=== PATIENT | male | born 1965 | race Caucasian/White ===

== ENCOUNTER 2019-09-26 09:16 | Inpatient (IN) | payer BC, OTHER ==
[~2019-09-26] VITALS: Ht 137.2 cm; Wt 70.8 kg
[~2019-09-26 09:16] MED LIST: ASPI-496 PO; ATOR20TA37 PO; LISI-167 PO; LISI5TAB7 PO; NICO1PAT31 TD; RANI150T4 PO; TAMS0.4C2 PO
--- NOTE | 2019-09-26 09:55 | NUR ---
BREAK RN: PT REPORT RECEIVED FROM ADAM FIGUEROA. PT CARE TO BE ASSUMED. PT RESTING QUIETLY ON BED WATCHING TV, EVEN CHEST RISE AND FALL NOTED.
[2019-09-26] MEDS ORDERED: methylPREDNISolone SOD SUCC 125 MG/2 ML IV ONE (10:00)
[2019-09-26] MEDS ORDERED: SODIUM CHLORIDE FLUSH 10ML SYR IVF ONE (10:00)
[2019-09-26] MEDS ORDERED: ALBUTEROL/IPRATROPIUM 2.5MG/0.5MG, 3 ML NPPB ONE (10:00)
[2019-09-26] MEDS ORDERED: ALBUTEROL/IPRATROPIUM 2.5MG/0.5MG, 3 ML ONE (10:04)
--- NOTE | 2019-09-26 10:08 | NUR ---
RT AT BS
[2019-09-26] MEDS ORDERED: methylPREDNISolone SOD SUCC 125 MG/2 ML ONE (10:30)
--- NOTE | 2019-09-26 10:49 | NUR ---
IV ATTEMPTED; UNSUCCESSFUL; WILL SEEK ASSISTANCE.
[2019-09-26] MEDS ORDERED: EPLE50TA3 PO (11:30)
[2019-09-26] MEDS ORDERED: VITAMIN D (11:30)
[2019-09-26] MEDS ORDERED: TADA20TA54 PO (11:30)
[2019-09-26] MEDS ORDERED: AMBR5TAB5 PO (11:30)
[2019-09-26] MEDS ORDERED: CIME400T PO (11:30)
[2019-09-26 11:41] LABS: BASOPHILS # (AUTO) 0.04 x10^3/uL (0-0.1); BASOPHILS % (AUTO) 0 % (0-1); EOSINOPHILS # (AUTO) 0.09 x10^3/uL (0-0.4); EOSINOPHILS % (AUTO) 1 % (1-7); LYMPHOCYTES # (AUTO) 0.89 x10^3/uL (1-3.4); LYMPHOCYTES % (AUTO) 10 % (22-44); MD NO; MEAN CORPUSCULAR HEMOGLOBIN 32.2 pg (27.5-34.5); MEAN CORPUSCULAR HGB CONC 33.1 g/dL (33.2-36.2); MEAN CORPUSCULAR VOLUME 97.3 fL (81-97); MEAN PLATELET VOLUME 10.3 fL (7.4-10.4); MONOCYTES # (AUTO) 0.41 x10^3/uL (0.2-0.8); MONOCYTES % (AUTO) 5 % (2-9); NEUTROPHILS # (AUTO) 7.37 x10^3/uL (1.8-6.8); NEUTROPHILS % (AUTO) 84 % (42-75); PLATELET COUNT 209 x10^3/uL (130-400); RED BLOOD COUNT 4.64 x10^6/uL (4.38-5.82); RED CELL DISTRIBUTION WIDTH 13.6 % (9.4-14.8)
--- NOTE | 2019-09-26 11:47 | NUR ---
PT REPORT TO ADAM FIGUEROA. PT CARE TRANSFERRED.
--- NOTE | 2019-09-26 11:47 | NUR ---
PT RESTING ON GURNEY, MOTHER AT BEDSIDE, VSS, NAD NOTED AT THIS TIME
[2019-09-26 11:56] LABS: ALBUMIN 3.6 g/dL (3.4-5.0); ANION GAP 7 mmol/L (5-15); CALCIUM 8.7 mg/dL (8.5-10.1); CHLORIDE 106 mmol/L (98-107)
[2019-09-26 12:04] LABS: ALANINE AMINOTRANSFERASE 28 U/L (12-78); ALKALINE PHOSPHATASE 66 U/L (45-117); BILIRUBIN,TOTAL 0.4 mg/dL (0.2-1.0); CREATININE 1.16 mg/dL (0.7-1.3); TOTAL PROTEIN 7.2 g/dL (6.4-8.2); TROPONIN I < 0.015 ng/mL (0.000-0.045)
--- NOTE | 2019-09-26 12:26 | NUR ---
ERMD IN TO UPDATE PT ON POC, ANTICIPATE ADMISSION. NO NEEDS AT THIS TIME.
[2019-09-26] MEDS ORDERED: SODIUM CHLORIDE FLUSH 10ML SYR IVF PRN (13:00)
--- NOTE | 2019-09-26 13:26 | NUR ---
REPORT GIVEN TO SHEILA CENTENO
[2019-09-26 13:46] VITALS: BP 125/63
[2019-09-26] MEDS ORDERED: ENOXAPARIN 40 MG/0.4 ML SQ SCH (14:00)
[2019-09-26 14:56] LABS: RAPID INFLUENZA A Negative (Negative); RAPID INFLUENZA B Negative (Negative)
[2019-09-26] MEDS ORDERED: SPIR25TA5 PO (15:15)
[2019-09-26] MEDS ORDERED: CHOL100011 PO (15:18)
[2019-09-26 16:08] VITALS: BP 106/57
[2019-09-26 18:45] VITALS: BP 112/56
[2019-09-26 18:55] LABS: TROPONIN I < 0.015 ng/mL (0.000-0.045)
[2019-09-26] MEDS: methylPREDNISolone SOD SUCC 125 MG/2 ML IVPush SCH (19:00)
[2019-09-26] MEDS: ALBUTEROL/IPRATROPIUM 2.5MG/0.5MG, 3 ML NPPB PRN (19:04)
[2019-09-26 20:13] VITALS: BP 117/52
[2019-09-26] MEDS ORDERED: MAGNESIUM HYDROXIDE 8%, 30ML UDC ONE (20:29)
[2019-09-26] MEDS ORDERED: MAGNESIUM HYDROXIDE 8%, 30ML UDC PO PRN (20:30)
[2019-09-26] MEDS ORDERED: ACETAMINOPHEN 325 MG TABLET PO PRN (20:30)
[2019-09-26] MEDS: TAMSULOSIN 0.4 MG CAP.ER.24H PO SCH (20:36)
[2019-09-26] MEDS: DOCUSATE 100 MG CAPSULE PO SCH (20:37)
[2019-09-26] MEDS ORDERED: CIMETIDINE 400 MG TABLET PO SCH (21:00)
[2019-09-26] MEDS ORDERED: ATORVASTATIN 20 MG TABLET PO SCH (21:00)
[2019-09-27 01:30] VITALS: BP 90/65
[2019-09-27 01:38] LABS: TROPONIN I < 0.015 ng/mL (0.000-0.045)
[2019-09-27] MEDS: ALBUTEROL/IPRATROPIUM 2.5MG/0.5MG, 3 ML NPPB PRN (02:17)
[2019-09-27] MEDS: methylPREDNISolone SOD SUCC 125 MG/2 ML IVPush SCH ×3 (02:56→09:15)
[2019-09-27 05:00] LABS: BASOPHILS % (AUTO) 0 % (0-1); EOSINOPHILS % (AUTO) 0 % (1-7); LYMPHOCYTES # (AUTO) 0.43 x10^3/uL (1-3.4); LYMPHOCYTES % (AUTO) 4 % (22-44); MD NO; MEAN CORPUSCULAR HEMOGLOBIN 32.8 pg (27.5-34.5); MEAN CORPUSCULAR VOLUME 96.5 fL (81-97); MEAN PLATELET VOLUME 9.6 fL (7.4-10.4); MONOCYTES # (AUTO) 0.26 x10^3/uL (0.2-0.8); MONOCYTES % (AUTO) 2 % (2-9); NEUTROPHILS # (AUTO) 10.67 x10^3/uL (1.8-6.8); NEUTROPHILS % (AUTO) 94 % (42-75); PLATELET COUNT 185 x10^3/uL (130-400); RED BLOOD COUNT 4.25 x10^6/uL (4.38-5.82); RED CELL DISTRIBUTION WIDTH 13.4 % (9.4-14.8)
[2019-09-27 05:04] LABS: ALBUMIN 3.4 g/dL (3.4-5.0); ANION GAP 8 mmol/L (5-15); CALCIUM 8.5 mg/dL (8.5-10.1); CHLORIDE 106 mmol/L (98-107)
[2019-09-27 05:15] LABS: ALANINE AMINOTRANSFERASE 31 U/L (12-78); ALKALINE PHOSPHATASE 61 U/L (45-117); BILIRUBIN,TOTAL 0.3 mg/dL (0.2-1.0); CREATININE 1.51 mg/dL (0.7-1.3); TOTAL PROTEIN 6.9 g/dL (6.4-8.2)
[2019-09-27] MEDS ORDERED: SODIUM CHLORIDE 0.9% 1,000 ML IV SCH (08:30)
[2019-09-27] MEDS ORDERED: CEFTRIAXONE PMX 2GM/50ML 50 ML IV SCH (08:30)
[2019-09-27 08:59] VITALS: BP 111/69
[2019-09-27] MEDS ORDERED: DOXYCYCLINE 100MG TABLET PO SCH (09:00)
[2019-09-27] MEDS ORDERED: ASPIRIN 81 MG TABLET EC PO SCH (09:00)
[2019-09-27] MEDS ORDERED: CIMETIDINE 200 MG TABLET PO SCH (09:00)
[2019-09-27] MEDS ORDERED: TADALAFIL 20 MG PO SCH (09:00)
[2019-09-27] MEDS ORDERED: LISINOPRIL 10 MG TABLET PO SCH (09:00)
[2019-09-27] MEDS ORDERED: LISINOPRIL 5 MG TABLET PO SCH (09:00)
[2019-09-27] MEDS ORDERED: AMBRISENTAN 5 MG PO SCH (09:00)
[2019-09-27] MEDS ORDERED: EPLERENONE 50 MG TABLET PO SCH (09:00)
[2019-09-27] MEDS: TAMSULOSIN 0.4 MG CAP.ER.24H PO SCH (09:11)
[2019-09-27] MEDS: DOCUSATE 100 MG CAPSULE PO SCH (09:11)
[2019-09-27 12:38] VITALS: BP 130/75
== END 2019-09-27 14:00 | disposition left against medical advice (07) | DRG 189 ==
LOC: ED 11:26 → EDIP 13:07 → 4WST 13:41
PROVIDERS: ADMIT Internal Medicine; ATTEND Internal Medicine
DX: J96.01 Acute respiratory failure with hypoxia (principal); N17.0 Acute kidney failure with tubular necrosis; I27.0 Primary pulmonary hypertension; Z99.11 Dependence on respirator [ventilator] status; E78.5 Hyperlipidemia, unspecified; G47.33 Obstructive sleep apnea (adult) (pediatric); J44.9 Chronic obstructive pulmonary disease, unspecified; Z86.74 Personal history of sudden cardiac arrest; Z87.891 Personal history of nicotine dependence; Z53.29 Procedure and treatment not carried out because of patient's decision for other reasons; Z91.040 Latex allergy status; Z88.8 Allergy status to other drugs, medicaments and biological substances; Z91.018 Allergy to other foods; E87.70 Fluid overload, unspecified
CPT/HCPCS: 36415; 87400; 96374; 99285; J7620; 71045; 80053; 83880; 84443; 84484; 85025; 85379; 93005; 93306; 93356; 94640; G0378; J0696; J1650; J2930; J7030

== ENCOUNTER 2019-09-28 03:47 | Inpatient (IN) | payer MEDICAID ==
[~2019-09-28] VITALS: Ht 137.2 cm; Wt 72.6 kg
[~2019-09-28 03:47] MED LIST changes: +AMBR5TAB5 PO; +CHOL100011 PO; +CIME400T PO; +EPLE50TA3 PO; +ETOMIDATE 40 MG/20 ML ONE; +PROPOFOL 10 MG/ML, 100ML IV ONE; +SPIR25TA5 PO; +TADA20TA54 PO; +VECURONIUM 10 MG ONE; +VITAMIN D
[2019-09-28] MEDS ORDERED: methylPREDNISolone SOD SUCC 125 MG/2 ML ONE (04:16)
--- NOTE | 2019-09-28 04:17 | NUR ---
PT MEDICATED PER EMAR. 5 RIGHTS ADDRESSED. ABX HELD UNTIL BLOOD CULTURES ARE DRAWN
--- NOTE | 2019-09-28 04:22 | NUR ---
RT AT BEDSIDE
[2019-09-28] MEDS ORDERED: methylPREDNISolone SOD SUCC 125 MG/2 ML IV ONE (04:30)
[2019-09-28] MEDS ORDERED: AZITHROMYCIN 500 MG in SODIUM CHLORIDE 0.9% 250 ML IVPB ONE (04:30)
--- NOTE | 2019-09-28 04:30 | NUR ---
LATE ENTRY: 53 Y/O MALE PRESENTS TO THE ER C/O SOB THAT STARTED SUDDENLY. PT WAS JUST HOSPITALIZED HERE AND LEFT AMA YESTERDAY. LABORED BREATHING PRESENT UPON ARRIVAL. SKIN IS RED, WARM TO TOUCH. RR 38, RA SATS IN TRIAGE IN 80s. PT DENIES NEEDING HOME O2. LUNG SOUNDS REVEAL WHEEZES THROUGHOUT WITH DIMINISHED SOUNDS ON THE LEFT. PULSES PRESENT, REGULAR, RAPID. SINUS TACH ON THE MONITOR WITH NO ECTOPY OR ST CHANGES PRESENT. PT ON NC AT 6LPM. O2 SAT INCREASED TO 99%.BREATHING REMAINS LABORED. DR. BERNAL AT BEDSIDE UPON ARRIVAL TO THE ROOM. EKG COMPLETE. MOTHER AT BEDSIDE.
[2019-09-28] MEDS ORDERED: ALBUTEROL/IPRATROPIUM 2.5MG/0.5MG, 3 ML ONE (04:36)
--- NOTE | 2019-09-28 04:52 | NUR ---
PT REPORTS SLIGHT RELIEF AFTER BREATHING TREATMENTS. RR IS STILL ABOUT THE SAME. PT PLACED ON ETCO2 MONITORING. ETCO2 35. PT REFUSING TO STAY IN BED, STATING "MY BACK HURTS, I CAN'T SIT THERE ANYMORE". PT ENCOURAGED TO SIT IN A CHAIR AT THE BEDSIDE BUT IS REFUSING AT THIS TIME. MOTHER REMAINS AT BEDSIDE. FRENCH LECTURER CARLOS LABS AND ONE SET OF BLOOD CULTURES, STILL AWAITING SECOND BLOOD CULTURE FOR ABX. DR. GABE TANG.
[2019-09-28 05:04] LABS: BASOPHILS # (AUTO) 0.03 x10^3/uL (0-0.1); BASOPHILS % (AUTO) 0 % (0-1); EOSINOPHILS % (AUTO) 0 % (1-7); LYMPHOCYTES # (AUTO) 1.48 x10^3/uL (1-3.4); LYMPHOCYTES % (AUTO) 11 % (22-44); MD NO; MEAN CORPUSCULAR HEMOGLOBIN 32.9 pg (27.5-34.5); MEAN CORPUSCULAR HGB CONC 33.8 g/dL (33.2-36.2); MEAN CORPUSCULAR VOLUME 97.3 fL (81-97); MEAN PLATELET VOLUME 9.4 fL (7.4-10.4); MONOCYTES # (AUTO) 0.26 x10^3/uL (0.2-0.8); MONOCYTES % (AUTO) 2 % (2-9); NEUTROPHILS # (AUTO) 11.22 x10^3/uL (1.8-6.8); NEUTROPHILS % (AUTO) 86 % (42-75); PLATELET COUNT 183 x10^3/uL (130-400); RED BLOOD COUNT 4.39 x10^6/uL (4.38-5.82)
[2019-09-28] MEDS: ALBUTEROL/IPRATROPIUM 2.5MG/0.5MG, 3 ML NPPB SCH ×2 (05:04→07:24)
--- NOTE | 2019-09-28 05:09 | NUR ---
DR. BERNAL AT BEDSIDE RE EVALUATING PT
[2019-09-28] MEDS ORDERED: CEFTRIAXONE PMX 1GM/50ML 50 ML ONE (05:11)
[2019-09-28] MEDS ORDERED: ACETAMINOPHEN 500 MG TABLET ONE (05:11)
[2019-09-28 05:16] LABS: ALBUMIN 3.4 g/dL (3.4-5.0); ANION GAP 6 mmol/L (5-15); CALCIUM 8.7 mg/dL (8.5-10.1); CHLORIDE 104 mmol/L (98-107); CREATININE 1.19 mg/dL (0.7-1.3)
[2019-09-28 05:20] LABS: TROPONIN I 0.017 ng/mL (0.000-0.045)
[2019-09-28] MEDS ORDERED: ACETAMINOPHEN 500 MG TABLET PO ONE (05:30)
[2019-09-28] MEDS ORDERED: CEFTRIAXONE PMX 1GM/50ML 50 ML IV ONE (05:30)
--- NOTE | 2019-09-28 05:45 | NUR ---
RESPIRATORY EFFORT HAS DECREASED, PT BREATHING WITH EASE AT THIS TIME. SLEEPING. AROUSES TO VERBAL STIMULI. RR 26. SATS 95% ON O2. NO IV FLUIDS PER ERP. ABX INFUSING, WILL CONTINUE TO MONITOR.
[2019-09-28 05:49] LABS: RAPID INFLUENZA A Negative (Negative); RAPID INFLUENZA B Negative (Negative)
--- NOTE | 2019-09-28 06:05 | NUR ---
PT OUT OF BED WITHOUT CALLING NURSE. PULLING EKG LEADS OFF STATING "HOW MUCH LONGER". PT EDUCATED ON THE NEED TO STAY IN BED AND NOT GET UP WITHOUT PRESSING HIS CALL LIGHT FOR HIS SAFETY. PT VERBALIZES UNDERSTANDING. PT PLACED BACK IN BED, LYING ON HIS SIDE. THIS RN ATTEMPTED TO REPOSITION THE PT AND THE PT RESPONDED "LEAVE ME HERE, I'M FINE HERE". ALL VITALS STABLE. AWAITING ROOM FOR PATIENT ON MED TELE. PT UPDATED ON POC. VERBALIZES UNDERSTANDING.
--- NOTE | 2019-09-28 06:18 | NUR ---
REPORT TO ADAM PALMER
[2019-09-28 06:30] VITALS: BP 93/57
[2019-09-28] MEDS ORDERED: PHARMACOKINETIC CONSULTATION MC ONE (08:30)
[2019-09-28] MEDS ORDERED: PHARMACOKINETIC MONITORING MC PRN (08:30)
[2019-09-28] MEDS ORDERED: VANCOMYCIN PER PHARMACY MC PRN (08:30)
[2019-09-28] MEDS ORDERED: FUROSEMIDE 40 MG/4 ML IV ONE (08:30)
[2019-09-28] MEDS: PIPERACILLIN/TAZO/PMX 3.375GM 50 ML IV SCH ×3 (09:32→21:37)
[2019-09-28] MEDS ORDERED: FENTANYL PF 100 MCG/2ML ONE (10:49)
[2019-09-28] MEDS ORDERED: BISACODYL 10 MG SUPP PR PRN (11:00)
[2019-09-28] MEDS: ALBUTEROL/IPRATROPIUM 2.5MG/0.5MG, 3 ML INLINE SCH ×4 (11:00→22:10)
[2019-09-28] MEDS ORDERED: SENNA/DOCUSATE TABLET NG PRN (11:00)
[2019-09-28] MEDS ORDERED: DEXTROSE 50%, 50ML SYRINGE IVPush PRN (11:00)
[2019-09-28] MEDS ORDERED: PHARMACY MAY ADJ FOR RENAL FX MC SCH (11:00)
[2019-09-28] MEDS ORDERED: SENNA 176 MG/5 ML ORAL SOL NG PRN (11:00)
[2019-09-28] MEDS ORDERED: DEXTROSE 4 GM TAB.CHEW PO PRN (11:00)
[2019-09-28] MEDS ORDERED: LIDOCAINE-MPF 1%, 2ML ENDO PRN (11:00)
[2019-09-28] MEDS ORDERED: GLUCAGON 1 MG IM PRN (11:00)
[2019-09-28] MEDS ORDERED: LACTULOSE 20 GM/30 ML UDC NG PRN (11:00)
[2019-09-28] MEDS: FENTANYL PF 100 MCG/2ML IVPush PRN (11:15)
[2019-09-28 12:21] LABS: BASOPHILS # (AUTO) 0.01 x10^3/uL (0-0.1); BASOPHILS % (AUTO) 0 % (0-1); EOSINOPHILS % (AUTO) 0 % (1-7); LYMPHOCYTES # (AUTO) 0.44 x10^3/uL (1-3.4); LYMPHOCYTES % (AUTO) 4 % (22-44); MD NO; MEAN CORPUSCULAR HEMOGLOBIN 32.3 pg (27.5-34.5); MEAN CORPUSCULAR HGB CONC 32.9 g/dL (33.2-36.2); MEAN CORPUSCULAR VOLUME 98.2 fL (81-97); MEAN PLATELET VOLUME 9.5 fL (7.4-10.4); MONOCYTES # (AUTO) 0.22 x10^3/uL (0.2-0.8); MONOCYTES % (AUTO) 2 % (2-9); NEUTROPHILS # (AUTO) 11.02 x10^3/uL (1.8-6.8); NEUTROPHILS % (AUTO) 94 % (42-75); PLATELET COUNT 191 x10^3/uL (130-400); RED BLOOD COUNT 4.46 x10^6/uL (4.38-5.82); RED CELL DISTRIBUTION WIDTH 14.2 % (9.4-14.8)
[2019-09-28 12:31] LABS: ANION GAP 9 mmol/L (5-15); CALCIUM 7.7 mg/dL (8.5-10.1); CHLORIDE 103 mmol/L (98-107); CREATININE 1.51 mg/dL (0.7-1.3); TRIGLYCERIDES 104 mg/dL (50-200)
[2019-09-28 12:34] LABS: TROPONIN I < 0.015 ng/mL (0.000-0.045)
[2019-09-28] MEDS: PROPOFOL 100 ML IV PRN ×2 (14:37→18:23)
[2019-09-28] MEDS: SODIUM CHLORIDE FLUSH 10ML SYR IVF SCH ×2 (14:42→20:09)
[2019-09-28] MEDS: PANTOPRAZOLE 40 MG IV IV SCH (14:45)
[2019-09-28 16:28] LABS: AMPHETAMINE SCREEN, URINE Negative (Negative); BARBITURATE SCREEN, URINE Negative (Negative); BENZODIAZEPINE SCREEN, URINE Negative (Negative); CANNABINOID SCREEN, URINE Negative (Negative); COCAINE SCREEN, URINE Negative (Negative); METHADONE SCREEN, URINE Negative (Negative); OPIATE SCREEN, URINE Negative (Negative)
[2019-09-28 17:23] LABS: TROPONIN I < 0.015 ng/mL (0.000-0.045)
[2019-09-28] MEDS: VANCOMYCIN 1,400 MG in SODIUM CHLORIDE 0.9% 250 ML IV SCH (17:38)
[2019-09-28] MEDS: HEPARIN 5,000 UNITS/ML, 1ML SQ SCH (20:10)
[2019-09-29] MEDS: PROPOFOL 100 ML IV PRN ×6 (00:32→23:10)
[2019-09-29] MEDS: ALBUTEROL/IPRATROPIUM 2.5MG/0.5MG, 3 ML INLINE SCH ×6 (02:15→22:15)
[2019-09-29] MEDS: HEPARIN 5,000 UNITS/ML, 1ML SQ SCH ×3 (03:45→21:30)
[2019-09-29] MEDS: PIPERACILLIN/TAZO/PMX 3.375GM 50 ML IV SCH ×4 (03:46→23:10)
[2019-09-29 04:17] LABS: BASOPHILS % (AUTO) 0 % (0-1); EOSINOPHILS % (AUTO) 0 % (1-7); LYMPHOCYTES % (AUTO) 6 % (22-44); MD NO; MEAN CORPUSCULAR HEMOGLOBIN 31.9 pg (27.5-34.5); MEAN CORPUSCULAR HGB CONC 32.6 g/dL (33.2-36.2); MEAN PLATELET VOLUME 9.5 fL (7.4-10.4); MONOCYTES # (AUTO) 0.59 x10^3/uL (0.2-0.8); MONOCYTES % (AUTO) 5 % (2-9); NEUTROPHILS # (AUTO) 9.95 x10^3/uL (1.8-6.8); NEUTROPHILS % (AUTO) 89 % (42-75); PLATELET COUNT 203 x10^3/uL (130-400); RED BLOOD COUNT 4.29 x10^6/uL (4.38-5.82)
[2019-09-29 04:20] LABS: ALANINE AMINOTRANSFERASE 43 U/L (12-78); ALBUMIN 2.9 g/dL (3.4-5.0); ANION GAP 6 mmol/L (5-15); CALCIUM 8.2 mg/dL (8.5-10.1); CHLORIDE 104 mmol/L (98-107); CREATININE 1.34 mg/dL (0.7-1.3)
[2019-09-29 04:23] LABS: ALKALINE PHOSPHATASE 52 U/L (45-117); BILIRUBIN,TOTAL 0.4 mg/dL (0.2-1.0); TOTAL PROTEIN 6.6 g/dL (6.4-8.2)
[2019-09-29 05:01] VITALS: BP 124/65
[2019-09-29] MEDS: SODIUM CHLORIDE FLUSH 10ML SYR IVF SCH ×2 (08:45→21:31)
[2019-09-29] MEDS: PANTOPRAZOLE 40 MG IV IV SCH (08:45)
--- NOTE | 2019-09-29 11:16 | NUR ---
TF goal recs: Promote @ 60 ml/hour on propofol and 65 ml/hour off propofol
[2019-09-29] MEDS: VANCOMYCIN 1,400 MG in SODIUM CHLORIDE 0.9% 250 ML IV SCH (11:33)
[2019-09-29] MEDS: BUDESONIDE 0.5 MG/2 ML INHA INH SCH (18:20)
[2019-09-29] MEDS: ACETAMINOPHEN 650 MG/20.3 ML UDC NG PRN (21:31)
[2019-09-29] MEDS: FENTANYL PF 100 MCG/2ML IVPush PRN ×2 (22:01→23:57)
[2019-09-30] MEDS: ACETAMINOPHEN 650 MG/20.3 ML UDC NG PRN ×2 (01:57→07:54)
[2019-09-30] MEDS ORDERED: MIDAZOLAM 1 MG/ML, 2ML IVPush ONE (02:00)
[2019-09-30] MEDS: ALBUTEROL/IPRATROPIUM 2.5MG/0.5MG, 3 ML INLINE SCH ×6 (02:15→22:30)
[2019-09-30] MEDS: PROPOFOL 100 ML IV PRN ×5 (03:02→22:03)
[2019-09-30] MEDS: HEPARIN 5,000 UNITS/ML, 1ML SQ SCH ×3 (03:03→19:45)
[2019-09-30] MEDS: FENTANYL PF 100 MCG/2ML IVPush PRN ×2 (03:10→13:46)
[2019-09-30 04:39] LABS: BASOPHILS # (AUTO) 0.01 x10^3/uL (0-0.1); BASOPHILS % (AUTO) 0 % (0-1); EOSINOPHILS # (AUTO) 0.01 x10^3/uL (0-0.4); EOSINOPHILS % (AUTO) 0 % (1-7); LYMPHOCYTES # (AUTO) 0.94 x10^3/uL (1-3.4); LYMPHOCYTES % (AUTO) 14 % (22-44); MD NO; MEAN CORPUSCULAR HEMOGLOBIN 32.4 pg (27.5-34.5); MEAN CORPUSCULAR HGB CONC 33.4 g/dL (33.2-36.2); MEAN CORPUSCULAR VOLUME 96.9 fL (81-97); MEAN PLATELET VOLUME 9.5 fL (7.4-10.4); MONOCYTES # (AUTO) 0.13 x10^3/uL (0.2-0.8); MONOCYTES % (AUTO) 2 % (2-9); NEUTROPHILS # (AUTO) 5.75 x10^3/uL (1.8-6.8); NEUTROPHILS % (AUTO) 84 % (42-75); PLATELET COUNT 176 x10^3/uL (130-400); RED BLOOD COUNT 4.31 x10^6/uL (4.38-5.82); RED CELL DISTRIBUTION WIDTH 14.1 % (9.4-14.8)
[2019-09-30 04:51] LABS: ANION GAP 5 mmol/L (5-15); CALCIUM 8.1 mg/dL (8.5-10.1); CHLORIDE 105 mmol/L (98-107); CREATININE 1.32 mg/dL (0.7-1.3)
[2019-09-30] MEDS: PIPERACILLIN/TAZO/PMX 3.375GM 50 ML IV SCH ×4 (04:52→22:28)
[2019-09-30] MEDS: BUDESONIDE 0.5 MG/2 ML INHA INH SCH ×2 (06:40→18:15)
[2019-09-30] MEDS: PANTOPRAZOLE 40 MG IV IV SCH (09:29)
[2019-09-30] MEDS: SODIUM CHLORIDE FLUSH 10ML SYR IVF SCH ×2 (09:29→21:01)
[2019-09-30] MEDS: QUETIAPINE 25MG TABLET PO SCH ×2 (09:30→21:00)
[2019-09-30] MEDS ORDERED: FUROSEMIDE 20 MG/2 ML IV ONE (14:30)
[2019-10-01] MEDS: PROPOFOL 100 ML IV PRN ×5 (00:48→20:42)
[2019-10-01] MEDS: FENTANYL PF 100 MCG/2ML IVPush PRN (00:49)
[2019-10-01] MEDS: ALBUTEROL/IPRATROPIUM 2.5MG/0.5MG, 3 ML INLINE SCH ×6 (02:00→22:23)
[2019-10-01] MEDS: PIPERACILLIN/TAZO/PMX 3.375GM 50 ML IV SCH (03:53)
[2019-10-01] MEDS: HEPARIN 5,000 UNITS/ML, 1ML SQ SCH ×3 (03:53→19:46)
[2019-10-01 04:14] LABS: BASOPHILS # (AUTO) 0.01 x10^3/uL (0-0.1); BASOPHILS % (AUTO) 0 % (0-1); EOSINOPHILS # (AUTO) 0.02 x10^3/uL (0-0.4); EOSINOPHILS % (AUTO) 0 % (1-7); LYMPHOCYTES # (AUTO) 0.61 x10^3/uL (1-3.4); LYMPHOCYTES % (AUTO) 10 % (22-44); MD NO; MEAN CORPUSCULAR HEMOGLOBIN 32.3 pg (27.5-34.5); MEAN CORPUSCULAR HGB CONC 33.2 g/dL (33.2-36.2); MEAN CORPUSCULAR VOLUME 97.3 fL (81-97); MEAN PLATELET VOLUME 9.2 fL (7.4-10.4); MONOCYTES # (AUTO) 0.12 x10^3/uL (0.2-0.8); MONOCYTES % (AUTO) 2 % (2-9); NEUTROPHILS # (AUTO) 5.24 x10^3/uL (1.8-6.8); NEUTROPHILS % (AUTO) 87 % (42-75); PLATELET COUNT 178 x10^3/uL (130-400); RED BLOOD COUNT 4.34 x10^6/uL (4.38-5.82); RED CELL DISTRIBUTION WIDTH 14.1 % (9.4-14.8)
[2019-10-01] MEDS: BUDESONIDE 0.5 MG/2 ML INHA INH SCH ×2 (06:51→18:35)
[2019-10-01] MEDS ORDERED: POTASSIUM CHLORIDE 10% 40 MEQ/30 ML UDC PO ONE (07:00)
[2019-10-01] MEDS: AMPICILLIN/SULBACTAM 3 GM in SODIUM CHLORIDE 0.9% 100 ML IV SCH ×3 (08:19→19:46)
[2019-10-01] MEDS: FUROSEMIDE 20 MG/2 ML IV SCH ×2 (08:20→17:35)
[2019-10-01] MEDS: PANTOPRAZOLE 40 MG IV IV SCH (10:34)
[2019-10-01] MEDS: QUETIAPINE 25MG TABLET PO SCH ×2 (10:35→20:51)
[2019-10-01] MEDS: SODIUM CHLORIDE FLUSH 10ML SYR IVF SCH ×2 (10:35→20:51)
[2019-10-01 15:44] LABS: ANION GAP 11 mmol/L (5-15); CALCIUM 8.2 mg/dL (8.5-10.1); CHLORIDE 103 mmol/L (98-107); CREATININE 1.21 mg/dL (0.7-1.3)
[2019-10-02] MEDS: PROPOFOL 100 ML IV PRN ×5 (00:10→23:06)
[2019-10-02] MEDS: AMPICILLIN/SULBACTAM 3 GM in SODIUM CHLORIDE 0.9% 100 ML IV SCH ×4 (00:52→19:46)
[2019-10-02] MEDS: ALBUTEROL/IPRATROPIUM 2.5MG/0.5MG, 3 ML INLINE SCH ×6 (02:05→22:22)
[2019-10-02] MEDS: HEPARIN 5,000 UNITS/ML, 1ML SQ SCH ×3 (04:22→19:46)
[2019-10-02 04:31] LABS: BASOPHILS % (AUTO) 0 % (0-1); EOSINOPHILS # (AUTO) 0.02 x10^3/uL (0-0.4); EOSINOPHILS % (AUTO) 0 % (1-7); LYMPHOCYTES # (AUTO) 0.79 x10^3/uL (1-3.4); LYMPHOCYTES % (AUTO) 12 % (22-44); MD NO; MEAN CORPUSCULAR HGB CONC 33.5 g/dL (33.2-36.2); MEAN CORPUSCULAR VOLUME 95.7 fL (81-97); MEAN PLATELET VOLUME 9.6 fL (7.4-10.4); MONOCYTES # (AUTO) 0.34 x10^3/uL (0.2-0.8); MONOCYTES % (AUTO) 5 % (2-9); NEUTROPHILS # (AUTO) 5.37 x10^3/uL (1.8-6.8); NEUTROPHILS % (AUTO) 82 % (42-75); PLATELET COUNT 183 x10^3/uL (130-400); RED BLOOD COUNT 4.41 x10^6/uL (4.38-5.82); RED CELL DISTRIBUTION WIDTH 13.5 % (9.4-14.8)
[2019-10-02] MEDS: ACETAMINOPHEN 650 MG/20.3 ML UDC NG PRN (06:06)
[2019-10-02] MEDS: BUDESONIDE 0.5 MG/2 ML INHA INH SCH ×2 (06:49→22:21)
[2019-10-02] MEDS: FUROSEMIDE 20 MG/2 ML IV SCH ×3 (07:20→23:21)
[2019-10-02] MEDS: FENTANYL PF 100 MCG/2ML IVPush PRN ×2 (07:21→23:05)
[2019-10-02 09:10] LABS: ANION GAP 10 mmol/L (5-15); CALCIUM 8.3 mg/dL (8.5-10.1); CHLORIDE 104 mmol/L (98-107); CREATININE 1.28 mg/dL (0.7-1.3)
[2019-10-02] MEDS: PANTOPRAZOLE 40 MG IV IV SCH (11:00)
[2019-10-02] MEDS: QUETIAPINE 25MG TABLET PO SCH ×2 (11:00→21:33)
[2019-10-02] MEDS: SODIUM CHLORIDE FLUSH 10ML SYR IVF SCH ×2 (11:00→21:34)
[2019-10-03] MEDS: AMPICILLIN/SULBACTAM 3 GM in SODIUM CHLORIDE 0.9% 100 ML IV SCH ×4 (00:55→18:43)
[2019-10-03] MEDS: ALBUTEROL/IPRATROPIUM 2.5MG/0.5MG, 3 ML INLINE SCH ×6 (02:10→23:00)
[2019-10-03] MEDS: PROPOFOL 100 ML IV PRN ×5 (03:15→23:07)
[2019-10-03] MEDS: HEPARIN 5,000 UNITS/ML, 1ML SQ SCH ×3 (04:09→20:45)
[2019-10-03 04:48] LABS: BASOPHILS # (AUTO) 0.02 x10^3/uL (0-0.1); BASOPHILS % (AUTO) 0 % (0-1); EOSINOPHILS # (AUTO) 0.21 x10^3/uL (0-0.4); EOSINOPHILS % (AUTO) 3 % (1-7); LYMPHOCYTES % (AUTO) 14 % (22-44); MD NO; MEAN CORPUSCULAR HEMOGLOBIN 31.7 pg (27.5-34.5); MEAN CORPUSCULAR HGB CONC 32.9 g/dL (33.2-36.2); MEAN CORPUSCULAR VOLUME 96.4 fL (81-97); MEAN PLATELET VOLUME 10.7 fL (7.4-10.4); MONOCYTES # (AUTO) 0.55 x10^3/uL (0.2-0.8); MONOCYTES % (AUTO) 8 % (2-9); NEUTROPHILS # (AUTO) 5.19 x10^3/uL (1.8-6.8); NEUTROPHILS % (AUTO) 75 % (42-75); PLATELET COUNT 166 x10^3/uL (130-400); RED BLOOD COUNT 4.52 x10^6/uL (4.38-5.82); RED CELL DISTRIBUTION WIDTH 13.8 % (9.4-14.8)
[2019-10-03 04:58] LABS: ALBUMIN 2.1 g/dL (3.4-5.0); ANION GAP 6 mmol/L (5-15); CALCIUM 8.5 mg/dL (8.5-10.1); CHLORIDE 101 mmol/L (98-107)
[2019-10-03 05:02] LABS: ALANINE AMINOTRANSFERASE 36 U/L (12-78); ALKALINE PHOSPHATASE 61 U/L (45-117); BILIRUBIN,TOTAL 0.5 mg/dL (0.2-1.0); CREATININE 1.34 mg/dL (0.7-1.3); TOTAL PROTEIN 6.9 g/dL (6.4-8.2)
[2019-10-03] MEDS: BUDESONIDE 0.5 MG/2 ML INHA INH SCH ×2 (06:21→18:30)
[2019-10-03] MEDS: ACETAMINOPHEN 650 MG/20.3 ML UDC NG PRN ×2 (06:26→23:19)
[2019-10-03] MEDS: FUROSEMIDE 20 MG/2 ML IV SCH (07:43)
[2019-10-03] MEDS ORDERED: SCOPOLAMINE PATCH, 1.5MG PATCH.TD72 TD SCH (09:00)
[2019-10-03] MEDS: QUETIAPINE 25MG TABLET PO SCH ×2 (11:49→20:45)
[2019-10-03] MEDS: SODIUM CHLORIDE FLUSH 10ML SYR IVF SCH ×2 (11:49→20:53)
[2019-10-03] MEDS: PANTOPRAZOLE 40 MG IV IV SCH (11:49)
[2019-10-03] MEDS: AcetaZOLAMIDE INJ 500 MG IVPush SCH ×2 (11:57→20:45)
[2019-10-03] MEDS: SCOPOLAMINE 1MG PATCH TD SCH (15:37)
[2019-10-04] MEDS: AMPICILLIN/SULBACTAM 3 GM in SODIUM CHLORIDE 0.9% 100 ML IV SCH ×4 (00:48→18:08)
[2019-10-04] MEDS: ALBUTEROL/IPRATROPIUM 2.5MG/0.5MG, 3 ML INLINE SCH ×6 (02:50→22:30)
[2019-10-04] MEDS: HEPARIN 5,000 UNITS/ML, 1ML SQ SCH ×3 (04:27→21:00)
[2019-10-04] MEDS: PROPOFOL 100 ML IV PRN ×2 (04:27→09:14)
[2019-10-04] MEDS: BUDESONIDE 0.5 MG/2 ML INHA INH SCH ×2 (06:36→18:15)
[2019-10-04] MEDS ORDERED: DIAZEPAM 5 MG/ML, 10ML VIAL IVPush PRN (09:00)
[2019-10-04] MEDS: SODIUM CHLORIDE FLUSH 10ML SYR IVF SCH ×2 (09:14→21:01)
[2019-10-04] MEDS: PANTOPRAZOLE 40 MG IV IV SCH (09:14)
[2019-10-04] MEDS: QUETIAPINE 25MG TABLET PO SCH ×2 (09:15→21:01)
[2019-10-04] MEDS: AcetaZOLAMIDE INJ 500 MG IVPush SCH ×2 (09:21→21:01)
[2019-10-04] MEDS: methylPREDNISolone SOD SUCC 40 MG/ML IV SCH ×3 (09:21→21:00)
[2019-10-04 09:45] LABS: BASOPHILS # (AUTO) 0.02 x10^3/uL (0-0.1); BASOPHILS % (AUTO) 0 % (0-1); EOSINOPHILS # (AUTO) 0.39 x10^3/uL (0-0.4); EOSINOPHILS % (AUTO) 5 % (1-7); LYMPHOCYTES # (AUTO) 1.16 x10^3/uL (1-3.4); LYMPHOCYTES % (AUTO) 15 % (22-44); MD NO; MEAN CORPUSCULAR HEMOGLOBIN 32.5 pg (27.5-34.5); MEAN CORPUSCULAR HGB CONC 33.8 g/dL (33.2-36.2); MEAN CORPUSCULAR VOLUME 96.1 fL (81-97); MEAN PLATELET VOLUME 9.9 fL (7.4-10.4); MONOCYTES # (AUTO) 0.76 x10^3/uL (0.2-0.8); MONOCYTES % (AUTO) 10 % (2-9); NEUTROPHILS % (AUTO) 70 % (42-75); RED BLOOD COUNT 4.34 x10^6/uL (4.38-5.82)
[2019-10-04 10:17] LABS: PLATELET COUNT 234 x10^3/uL (130-400)
[2019-10-04] MEDS ORDERED: ALBUMIN HUMAN 25% 100 ML IV ONE (11:30)
[2019-10-04] MEDS ORDERED: NOREPINEPHRINE 8 MG in SODIUM CHLORIDE 0.9% 242 ML IV PRN (14:30)
[2019-10-05] MEDS: PROPOFOL 100 ML IV PRN ×6 (00:16→22:42)
[2019-10-05] MEDS: AMPICILLIN/SULBACTAM 3 GM in SODIUM CHLORIDE 0.9% 100 ML IV SCH ×4 (00:28→19:33)
[2019-10-05] MEDS: ALBUTEROL/IPRATROPIUM 2.5MG/0.5MG, 3 ML INLINE SCH ×6 (02:20→22:31)
[2019-10-05] MEDS: methylPREDNISolone SOD SUCC 40 MG/ML IV SCH ×4 (03:48→20:49)
[2019-10-05] MEDS: HEPARIN 5,000 UNITS/ML, 1ML SQ SCH ×3 (03:48→20:49)
[2019-10-05 04:20] LABS: MEAN CORPUSCULAR HEMOGLOBIN 31.5 pg (27.5-34.5); MEAN CORPUSCULAR HGB CONC 32.4 g/dL (33.2-36.2); RED BLOOD COUNT 4.13 x10^6/uL (4.38-5.82); RED CELL DISTRIBUTION WIDTH 13.6 % (9.4-14.8)
[2019-10-05 04:31] LABS: BASOPHILS # (AUTO) 0.01 x10^3/uL (0-0.1); BASOPHILS % (AUTO) 0 % (0-1); EOSINOPHILS # (AUTO) 0.04 x10^3/uL (0-0.4); EOSINOPHILS % (AUTO) 1 % (1-7); LYMPHOCYTES # (AUTO) 0.73 x10^3/uL (1-3.4); LYMPHOCYTES % (AUTO) 11 % (22-44); MD SCAN; MEAN PLATELET VOLUME 10.6 fL (7.4-10.4); MONOCYTES # (AUTO) 0.47 x10^3/uL (0.2-0.8); MONOCYTES % (AUTO) 7 % (2-9); NEUTROPHILS # (AUTO) 5.41 x10^3/uL (1.8-6.8); NEUTROPHILS % (AUTO) 81 % (42-75); PLATELET COUNT 297 x10^3/uL (130-400)
[2019-10-05 04:54] LABS: ALANINE AMINOTRANSFERASE 43 U/L (12-78); ALBUMIN 2.6 g/dL (3.4-5.0); ANION GAP 7 mmol/L (5-15); CALCIUM 8.8 mg/dL (8.5-10.1); CHLORIDE 111 mmol/L (98-107)
[2019-10-05 04:57] LABS: ALKALINE PHOSPHATASE 50 U/L (45-117); BILIRUBIN,TOTAL 0.2 mg/dL (0.2-1.0); TOTAL PROTEIN 7.4 g/dL (6.4-8.2)
[2019-10-05] MEDS: BUDESONIDE 0.5 MG/2 ML INHA INH SCH ×2 (06:44→21:00)
[2019-10-05] MEDS ORDERED: POTASSIUM CHLORIDE 10% 40 MEQ/30 ML UDC PO ONE (07:00)
[2019-10-05] MEDS: PANTOPRAZOLE 40 MG IV IV SCH (09:15)
[2019-10-05] MEDS: QUETIAPINE 25MG TABLET PO SCH ×2 (09:15→20:49)
[2019-10-05] MEDS: SODIUM CHLORIDE FLUSH 10ML SYR IVF SCH ×2 (09:16→20:50)
[2019-10-06] MEDS: AMPICILLIN/SULBACTAM 3 GM in SODIUM CHLORIDE 0.9% 100 ML IV SCH ×4 (00:44→19:22)
[2019-10-06] MEDS: PROPOFOL 100 ML IV PRN (02:24)
[2019-10-06] MEDS: ALBUTEROL/IPRATROPIUM 2.5MG/0.5MG, 3 ML INLINE SCH ×3 (02:35→11:00)
[2019-10-06] MEDS: methylPREDNISolone SOD SUCC 40 MG/ML IV SCH ×2 (03:02→08:26)
[2019-10-06] MEDS: HEPARIN 5,000 UNITS/ML, 1ML SQ SCH ×3 (03:02→19:23)
[2019-10-06 04:35] LABS: BASOPHILS % (AUTO) 0 % (0-1); EOSINOPHILS # (AUTO) 0.17 x10^3/uL (0-0.4); EOSINOPHILS % (AUTO) 2 % (1-7); LYMPHOCYTES # (AUTO) 0.91 x10^3/uL (1-3.4); LYMPHOCYTES % (AUTO) 8 % (22-44); MD SCAN; MEAN CORPUSCULAR HEMOGLOBIN 32.4 pg (27.5-34.5); MEAN CORPUSCULAR HGB CONC 33.5 g/dL (33.2-36.2); MEAN CORPUSCULAR VOLUME 96.6 fL (81-97); MEAN PLATELET VOLUME 11.2 fL (7.4-10.4); MONOCYTES # (AUTO) 0.69 x10^3/uL (0.2-0.8); MONOCYTES % (AUTO) 6 % (2-9); NEUTROPHILS # (AUTO) 9.75 x10^3/uL (1.8-6.8); NEUTROPHILS % (AUTO) 85 % (42-75); PLATELET COUNT 283 x10^3/uL (130-400); RED BLOOD COUNT 4.01 x10^6/uL (4.38-5.82); RED CELL DISTRIBUTION WIDTH 14.2 % (9.4-14.8)
[2019-10-06] MEDS: BUDESONIDE 0.5 MG/2 ML INHA INH SCH ×2 (06:23→18:50)
[2019-10-06 08:24] LABS: ANION GAP 5 mmol/L (5-15); CALCIUM 9.2 mg/dL (8.5-10.1); CHLORIDE 116 mmol/L (98-107); CREATININE 1.28 mg/dL (0.7-1.3)
[2019-10-06] MEDS: PANTOPRAZOLE 40 MG IV IV SCH (08:25)
[2019-10-06] MEDS: SODIUM CHLORIDE FLUSH 10ML SYR IVF SCH ×2 (08:27→19:36)
[2019-10-06] MEDS: QUETIAPINE 25MG TABLET PO SCH ×2 (08:27→19:35)
[2019-10-06] MEDS ORDERED: LORazepam 2 MG/ML, 1ML ONE (11:01)
[2019-10-06] MEDS: LORazepam 2 MG/ML, 1ML IVPush PRN ×3 (11:10→21:46)
[2019-10-06] MEDS ORDERED: ALBUTEROL/IPRATROPIUM 2.5MG/0.5MG, 3 ML NPPB PRN (11:30)
[2019-10-06] MEDS: ALBUTEROL/IPRATROPIUM 2.5MG/0.5MG, 3 ML NPPB SCH ×2 (14:35→18:50)
[2019-10-06] MEDS: SCOPOLAMINE 1MG PATCH TD SCH (16:09)
[2019-10-06] MEDS ORDERED: methylPREDNISolone SOD SUCC 40 MG/ML IV SCH ×2 (17:00)
[2019-10-06] MEDS: ACETAMINOPHEN 650 MG/20.3 ML UDC NG PRN (21:00)
[2019-10-07] MEDS: methylPREDNISolone SOD SUCC 40 MG/ML IV SCH ×2 (00:11→09:06)
[2019-10-07] MEDS: LORazepam 2 MG/ML, 1ML IVPush PRN ×3 (00:49→06:03)
[2019-10-07] MEDS: AMPICILLIN/SULBACTAM 3 GM in SODIUM CHLORIDE 0.9% 100 ML IV SCH ×4 (00:50→20:36)
[2019-10-07] MEDS: ACETAMINOPHEN 650 MG/20.3 ML UDC NG PRN (02:48)
[2019-10-07] MEDS: HEPARIN 5,000 UNITS/ML, 1ML SQ SCH ×3 (03:32→20:36)
[2019-10-07 04:34] LABS: MEAN CORPUSCULAR HEMOGLOBIN 31.9 pg (27.5-34.5); MEAN CORPUSCULAR HGB CONC 33.5 g/dL (33.2-36.2); MEAN CORPUSCULAR VOLUME 95.3 fL (81-97); RED BLOOD COUNT 3.92 x10^6/uL (4.38-5.82); RED CELL DISTRIBUTION WIDTH 14.3 % (9.4-14.8)
[2019-10-07 04:38] LABS: ANION GAP 6 mmol/L (5-15); CHLORIDE 121 mmol/L (98-107)
[2019-10-07 04:41] LABS: CREATININE 1.21 mg/dL (0.7-1.3); TRIGLYCERIDES 175 mg/dL (50-200)
[2019-10-07 04:50] LABS: MD YES; MEAN PLATELET VOLUME 11.1 fL (7.4-10.4); PLATELET COUNT 281 x10^3/uL (130-400)
[2019-10-07 04:53] LABS: <PLATELET ESTIMATE> ADEQUATE; BAND#(MANUAL) 0.57 x10^3/uL; BANDS%(MANUAL) 5 % (0-7); HYPOCHROMIA 1+; LYMPH#(MANUAL) 0.46 x10^3/uL (1-3.4); LYMPHS% (MANUAL) 4 % (22-44); MONOS#(MANUAL) 0.34 x10^3/uL (0.3-2.7); MONOS% (MANUAL) 3 % (2-9); SEG#(MANUAL) 10.03 x10^3/uL (1.8-6.8); SEGS% (MANUAL) 88 % (42-75)
[2019-10-07 04:54] LABS: LARGE PLATELETS 1+
[2019-10-07] MEDS: BUDESONIDE 0.5 MG/2 ML INHA INH SCH ×2 (08:15→19:01)
[2019-10-07] MEDS: ALBUTEROL/IPRATROPIUM 2.5MG/0.5MG, 3 ML NPPB SCH ×4 (08:15→19:01)
[2019-10-07] MEDS: PANTOPRAZOLE 40 MG IV IV SCH (09:05)
[2019-10-07] MEDS: QUETIAPINE 25MG TABLET PO SCH ×3 (09:05→21:23)
[2019-10-07] MEDS: DEXTROSE 5% 500 ML IV SCH ×2 (09:06→23:40)
[2019-10-07] MEDS ORDERED: LIDODERM 5% PATCH TD PRN (09:30)
[2019-10-07] MEDS: SODIUM CHLORIDE FLUSH 10ML SYR IVF SCH ×2 (09:34→21:24)
[2019-10-07 13:13] VITALS: BP 118/63
[2019-10-07 19:13] VITALS: BP 154/75
[2019-10-08 00:07] VITALS: BP 171/83
[2019-10-08] MEDS: AMPICILLIN/SULBACTAM 3 GM in SODIUM CHLORIDE 0.9% 100 ML IV SCH ×4 (01:57→20:31)
[2019-10-08] MEDS: LORazepam 2 MG/ML, 1ML IVPush PRN (02:37)
[2019-10-08] MEDS: HEPARIN 5,000 UNITS/ML, 1ML SQ SCH ×3 (04:22→22:40)
[2019-10-08 06:09] LABS: ANION GAP 5 mmol/L (5-15); CALCIUM 8.7 mg/dL (8.5-10.1); CHLORIDE 121 mmol/L (98-107)
[2019-10-08 06:10] LABS: CREATININE 1.03 mg/dL (0.7-1.3)
[2019-10-08 06:21] LABS: MEAN CORPUSCULAR HGB CONC 33.5 g/dL (33.2-36.2); MEAN CORPUSCULAR VOLUME 95.6 fL (81-97); MEAN PLATELET VOLUME 10.7 fL (7.4-10.4); PLATELET COUNT 318 x10^3/uL (130-400); RED BLOOD COUNT 3.98 x10^6/uL (4.38-5.82)
[2019-10-08 06:44] LABS: BASOPHILS % (AUTO) 0 % (0-1); EOSINOPHILS # (AUTO) 0.11 x10^3/uL (0-0.4); EOSINOPHILS % (AUTO) 1 % (1-7); LYMPHOCYTES # (AUTO) 1.09 x10^3/uL (1-3.4); LYMPHOCYTES % (AUTO) 11 % (22-44); MD SCAN; MONOCYTES % (AUTO) 10 % (2-9); NEUTROPHILS # (AUTO) 7.94 x10^3/uL (1.8-6.8); NEUTROPHILS % (AUTO) 78 % (42-75)
[2019-10-08 07:25] VITALS: BP 165/81
[2019-10-08] MEDS: BUDESONIDE 0.5 MG/2 ML INHA INH SCH ×2 (08:20→19:02)
[2019-10-08] MEDS: ALBUTEROL/IPRATROPIUM 2.5MG/0.5MG, 3 ML NPPB SCH ×4 (08:20→19:02)
[2019-10-08] MEDS: QUETIAPINE 25MG TABLET PO SCH ×4 (09:00→21:00)
[2019-10-08] MEDS: SODIUM CHLORIDE FLUSH 10ML SYR IVF SCH ×2 (09:08→21:00)
[2019-10-08] MEDS: PANTOPRAZOLE 40 MG IV IV SCH (09:08)
--- NOTE | 2019-10-08 09:17 | NUR ---
REC: NPO with NGT; orange sheet posted; sips/chips ok after oral care Addendum: 10/08/19 at 0917 by Candace DYKES Amended: Links added.
[2019-10-08 13:18] VITALS: BP 165/71
[2019-10-08] MEDS: DEXTROSE 5% 500 ML IV SCH (15:53)
[2019-10-08 21:08] VITALS: BP 108/65
[2019-10-08 23:38] VITALS: BP 148/71
[2019-10-09 00:16] VITALS: BP 153/77
[2019-10-09] MEDS: LORazepam 2 MG/ML, 1ML IVPush PRN (00:50)
[2019-10-09] MEDS: AMPICILLIN/SULBACTAM 3 GM in SODIUM CHLORIDE 0.9% 100 ML IV SCH ×3 (01:58→14:10)
[2019-10-09 04:10] LABS: ANION GAP 8 mmol/L (5-15); CALCIUM 8.3 mg/dL (8.5-10.1); CHLORIDE 117 mmol/L (98-107); CREATININE 0.93 mg/dL (0.7-1.3)
[2019-10-09 04:14] LABS: MEAN CORPUSCULAR HGB CONC 33.6 g/dL (33.2-36.2); MEAN CORPUSCULAR VOLUME 95.4 fL (81-97); MEAN PLATELET VOLUME 10.6 fL (7.4-10.4); PLATELET COUNT 310 x10^3/uL (130-400); RED BLOOD COUNT 3.52 x10^6/uL (4.38-5.82); RED CELL DISTRIBUTION WIDTH 14.3 % (9.4-14.8)
[2019-10-09 06:00] LABS: BASOPHILS # (AUTO) 0.02 x10^3/uL (0-0.1); BASOPHILS % (AUTO) 0 % (0-1); EOSINOPHILS # (AUTO) 0.18 x10^3/uL (0-0.4); EOSINOPHILS % (AUTO) 2 % (1-7); LYMPHOCYTES # (AUTO) 1.07 x10^3/uL (1-3.4); LYMPHOCYTES % (AUTO) 13 % (22-44); MD SCAN; MONOCYTES # (AUTO) 0.74 x10^3/uL (0.2-0.8); MONOCYTES % (AUTO) 9 % (2-9); NEUTROPHILS # (AUTO) 6.42 x10^3/uL (1.8-6.8); NEUTROPHILS % (AUTO) 76 % (42-75)
[2019-10-09] MEDS: HEPARIN 5,000 UNITS/ML, 1ML SQ SCH ×3 (06:14→21:25)
[2019-10-09] MEDS: ALBUTEROL/IPRATROPIUM 2.5MG/0.5MG, 3 ML NPPB SCH ×4 (06:52→20:00)
[2019-10-09 06:56] VITALS: BP 157/76
[2019-10-09] MEDS: PANTOPRAZOLE 40 MG IV IV SCH (08:29)
[2019-10-09] MEDS: SODIUM CHLORIDE FLUSH 10ML SYR IVF SCH ×2 (08:29→21:26)
[2019-10-09] MEDS: QUETIAPINE 25MG TABLET PO SCH ×3 (09:00→21:26)
[2019-10-09] MEDS: BUDESONIDE 0.5 MG/2 ML INHA INH SCH ×2 (09:00→20:36)
[2019-10-09 15:03] VITALS: BP 143/76
[2019-10-09] MEDS ORDERED: POTASSIUM CHLORIDE 20 MEQ TAB.ER.PRT PO ONE (18:00)
[2019-10-09 20:01] VITALS: BP 110/65
[2019-10-09] MEDS ORDERED: POTASSIUM CHLORIDE 10% 20 MEQ/15 ML UDC PO ONE (21:00)
[2019-10-10] MEDS: HEPARIN 5,000 UNITS/ML, 1ML SQ SCH ×2 (06:04→17:40)
[2019-10-10] MEDS: ALBUTEROL/IPRATROPIUM 2.5MG/0.5MG, 3 ML NPPB SCH ×4 (07:00→20:00)
[2019-10-10] MEDS ORDERED: DEXTROSE 5% 500 ML IV SCH (07:00)
[2019-10-10 07:38] LABS: BASOPHILS # (AUTO) 0.03 x10^3/uL (0-0.1); BASOPHILS % (AUTO) 0 % (0-1); EOSINOPHILS % (AUTO) 4 % (1-7); LYMPHOCYTES # (AUTO) 1.73 x10^3/uL (1-3.4); LYMPHOCYTES % (AUTO) 18 % (22-44); MD NO; MEAN CORPUSCULAR HEMOGLOBIN 31.9 pg (27.5-34.5); MEAN CORPUSCULAR HGB CONC 32.7 g/dL (33.2-36.2); MEAN CORPUSCULAR VOLUME 97.4 fL (81-97); MEAN PLATELET VOLUME 10.4 fL (7.4-10.4); MONOCYTES # (AUTO) 0.58 x10^3/uL (0.2-0.8); MONOCYTES % (AUTO) 6 % (2-9); NEUTROPHILS # (AUTO) 6.68 x10^3/uL (1.8-6.8); NEUTROPHILS % (AUTO) 71 % (42-75); PLATELET COUNT 323 x10^3/uL (130-400); RED BLOOD COUNT 3.57 x10^6/uL (4.38-5.82); RED CELL DISTRIBUTION WIDTH 13.9 % (9.4-14.8)
[2019-10-10 07:53] LABS: ANION GAP 5 mmol/L (5-15); CALCIUM 8.2 mg/dL (8.5-10.1); CHLORIDE 112 mmol/L (98-107)
[2019-10-10 07:54] LABS: CREATININE 0.88 mg/dL (0.7-1.3)
[2019-10-10 08:34] VITALS: BP 134/79
[2019-10-10] MEDS: BUDESONIDE 0.5 MG/2 ML INHA INH SCH ×2 (09:00→20:17)
[2019-10-10] MEDS: QUETIAPINE 25MG TABLET PO SCH ×3 (09:02→21:59)
[2019-10-10] MEDS: PANTOPRAZOLE 40 MG IV IV SCH (09:02)
[2019-10-10] MEDS: SODIUM CHLORIDE FLUSH 10ML SYR IVF SCH ×2 (09:02→21:59)
[2019-10-10] MEDS ORDERED: POTASSIUM CHLORIDE 10% 40 MEQ/30 ML UDC PO ONE (10:00)
[2019-10-10] MEDS ORDERED: POTASSIUM CHLORIDE 20 MEQ TAB.ER.PRT PO ONE (17:30)
[2019-10-10 18:31] VITALS: BP 104/61
[2019-10-11 01:26] VITALS: BP 125/77
[2019-10-11] MEDS: HEPARIN 5,000 UNITS/ML, 1ML SQ SCH ×3 (01:38→17:21)
[2019-10-11] MEDS ORDERED: PANTOPROZOLE 40MG TABLET PO SCH (06:00)
[2019-10-11 06:46] VITALS: BP 135/70
[2019-10-11] MEDS: ALBUTEROL/IPRATROPIUM 2.5MG/0.5MG, 3 ML NPPB SCH ×4 (07:30→21:08)
[2019-10-11] MEDS: BUDESONIDE 0.5 MG/2 ML INHA INH SCH ×2 (07:30→21:08)
[2019-10-11 08:20] LABS: BASOPHILS # (AUTO) 0.16 x10^3/uL (0-0.1); BASOPHILS % (AUTO) 2 % (0-1); EOSINOPHILS # (AUTO) 0.36 x10^3/uL (0-0.4); EOSINOPHILS % (AUTO) 4 % (1-7); LYMPHOCYTES # (AUTO) 2.14 x10^3/uL (1-3.4); LYMPHOCYTES % (AUTO) 22 % (22-44); MD NO; MEAN CORPUSCULAR HEMOGLOBIN 32.4 pg (27.5-34.5); MEAN CORPUSCULAR HGB CONC 33.4 g/dL (33.2-36.2); MEAN CORPUSCULAR VOLUME 96.8 fL (81-97); MEAN PLATELET VOLUME 10.2 fL (7.4-10.4); MONOCYTES # (AUTO) 0.54 x10^3/uL (0.2-0.8); MONOCYTES % (AUTO) 5 % (2-9); NEUTROPHILS # (AUTO) 6.75 x10^3/uL (1.8-6.8); NEUTROPHILS % (AUTO) 68 % (42-75); PLATELET COUNT 311 x10^3/uL (130-400); RED BLOOD COUNT 3.94 x10^6/uL (4.38-5.82); RED CELL DISTRIBUTION WIDTH 13.9 % (9.4-14.8)
[2019-10-11 08:25] LABS: ANION GAP 4 mmol/L (5-15); CALCIUM 8.6 mg/dL (8.5-10.1); CHLORIDE 111 mmol/L (98-107); CREATININE 0.96 mg/dL (0.7-1.3)
[2019-10-11] MEDS: QUETIAPINE 25MG TABLET PO SCH ×2 (10:05→17:21)
[2019-10-11] MEDS: SODIUM CHLORIDE FLUSH 10ML SYR IVF SCH ×2 (10:05→21:00)
[2019-10-11 12:23] VITALS: BP 100/57
[2019-10-11 17:18] VITALS: BP 106/69
[2019-10-11 19:15] VITALS: BP 130/66
[2019-10-12 01:12] VITALS: BP 150/90
[2019-10-12] MEDS: QUETIAPINE 25MG TABLET PO SCH ×2 (01:30→02:04)
[2019-10-12] MEDS: HEPARIN 5,000 UNITS/ML, 1ML SQ SCH ×2 (01:30→02:04)
== END 2019-10-12 04:55 | disposition home or self-care (01) | DRG 870 ==
LOC: ED 05:38 → EDIP 06:02 → 4WST 06:25 → CCU 09:55 → ICU 14:17 → 3N 10-07 13:37
PROVIDERS: ADMIT Internal Medicine; ATTEND Internal Medicine
PROC: 0BJ08ZZ Inspection of Tracheobronchial Tree, Via Natural or Artificial Opening Endoscopic (ICD-10-PCS; principal; 2019-09-28)
PROC: 5A1955Z Respiratory Ventilation, Greater than 96 Consecutive Hours (ICD-10-PCS; 2019-09-28)
PROC: 0BH17EZ Insertion of Endotracheal Airway into Trachea, Via Natural or Artificial Opening (ICD-10-PCS; 2019-09-28)
PROC: 02H633Z Insertion of Infusion Device into Right Atrium, Percutaneous Approach (ICD-10-PCS; 2019-09-28)
PROC: B548ZZA Ultrasonography of Superior Vena Cava, Guidance (ICD-10-PCS; 2019-09-28)
DX: A41.9 Sepsis, unspecified organism (principal); G93.41 Metabolic encephalopathy; I50.33 Acute on chronic diastolic (congestive) heart failure; J18.9 Pneumonia, unspecified organism; J96.01 Acute respiratory failure with hypoxia; N17.0 Acute kidney failure with tubular necrosis; R65.21 Severe sepsis with septic shock; E66.2 Morbid (severe) obesity with alveolar hypoventilation; E87.2 Acidosis; I27.0 Primary pulmonary hypertension; J44.0 Chronic obstructive pulmonary disease with (acute) lower respiratory infection; J44.1 Chronic obstructive pulmonary disease with (acute) exacerbation; K56.7 Ileus, unspecified; Z99.11 Dependence on respirator [ventilator] status; Z68.38 Body mass index [BMI] 38.0-38.9, adult; E78.5 Hyperlipidemia, unspecified; E87.6 Hypokalemia; F17.200 Nicotine dependence, unspecified, uncomplicated; F41.9 Anxiety disorder, unspecified; G47.33 Obstructive sleep apnea (adult) (pediatric); I11.0 Hypertensive heart disease with heart failure; I35.1 Nonrheumatic aortic (valve) insufficiency; I45.10 Unspecified right bundle-branch block; J06.9 Acute upper respiratory infection, unspecified; Z51.5 Encounter for palliative care; R13.10 Dysphagia, unspecified; Z77.098 Contact with and (suspected) exposure to other hazardous, chiefly nonmedicinal, chemicals; Z91.19 Patient's noncompliance with other medical treatment and regimen
CPT/HCPCS: 36415; 36600; 74230; 87400; 96365; 96375; 99285; J7620; J7626; 71045; 71250; 74176; 80048; 80053; 80307; 82040; 82533; 82803; 83605; 83735; 83880; 84100; 84132; 84478; 84484; 85025; 87015; 87040; 87070; 87081; 87102; 87116; 87205; 87206; 93005; 94002; 94003; 94640; G0378; J0295; J0456; J0696; J1644; J1940; J2250; J2543; J2704; J3010; J3360; J3370; P9047; C9113; J1120; J2060; J2920; J2930; J7050; J7060; Q0177

== ENCOUNTER 2019-10-12 23:13 | Inpatient (IN) | payer OTHER, MEDICAID ==
[~2019-10-12] VITALS: Ht 137.2 cm; Wt 67.4 kg
[~2019-10-12 23:13] MED LIST changes: -ETOMIDATE 40 MG/20 ML ONE; -PROPOFOL 10 MG/ML, 100ML IV ONE; -VECURONIUM 10 MG ONE
--- NOTE | 2019-10-12 23:28 | NUR ---
MAXINE SOLANO FROM HOME. PT HYPOXIC ON EXERTION. PT SIGNED OUT AMA THIS MORNING FROM [facility]. BAKELITE MOLDER 20G LAC, 250ML NS. PT CONNECTED TO MONITORING. CALL LIGHT IN REACH. FAMILY AT BEDSIDE.
[2019-10-13] MEDS ORDERED: SODIUM CHLORIDE FLUSH 10ML SYR IVF ONE
[2019-10-13] MEDS ORDERED: ACETAMINOPHEN 325 MG TABLET PO ONE
--- NOTE | 2019-10-13 | NUR ---
REPORT GIVEN TO SEJAL MEDINA
[2019-10-13 00:05] LABS: BASOPHILS # (AUTO) 0.03 x10^3/uL (0-0.1); BASOPHILS % (AUTO) 0 % (0-1); EOSINOPHILS # (AUTO) 0.17 x10^3/uL (0-0.4); EOSINOPHILS % (AUTO) 2 % (1-7); LYMPHOCYTES # (AUTO) 1.86 x10^3/uL (1-3.4); LYMPHOCYTES % (AUTO) 20 % (22-44); MD NO; MEAN CORPUSCULAR HEMOGLOBIN 32.4 pg (27.5-34.5); MEAN CORPUSCULAR HGB CONC 33.5 g/dL (33.2-36.2); MEAN CORPUSCULAR VOLUME 96.8 fL (81-97); MEAN PLATELET VOLUME 10.7 fL (7.4-10.4); MONOCYTES # (AUTO) 0.71 x10^3/uL (0.2-0.8); MONOCYTES % (AUTO) 8 % (2-9); NEUTROPHILS # (AUTO) 6.36 x10^3/uL (1.8-6.8); NEUTROPHILS % (AUTO) 70 % (42-75); PLATELET COUNT 312 x10^3/uL (130-400); RED BLOOD COUNT 3.79 x10^6/uL (4.38-5.82); RED CELL DISTRIBUTION WIDTH 14.4 % (9.4-14.8)
[2019-10-13 00:12] LABS: ALANINE AMINOTRANSFERASE 48 U/L (12-78); ALBUMIN 2.5 g/dL (3.4-5.0); ANION GAP 5 mmol/L (5-15); CALCIUM 8.3 mg/dL (8.5-10.1); CHLORIDE 109 mmol/L (98-107)
[2019-10-13 00:15] LABS: ALKALINE PHOSPHATASE 58 U/L (45-117); BILIRUBIN,TOTAL 0.7 mg/dL (0.2-1.0); CREATININE 1.07 mg/dL (0.7-1.3); TOTAL PROTEIN 6.8 g/dL (6.4-8.2)
[2019-10-13] MEDS ORDERED: ACETAMINOPHEN 325 MG TABLET ONE (00:49)
[2019-10-13 00:53] LABS: TROPONIN I < 0.015 ng/mL (0.000-0.045)
[2019-10-13] MEDS ORDERED: CEFTRIAXONE PMX 1GM/50ML 50 ML IVPB ONE (01:30)
[2019-10-13] MEDS ORDERED: AZITHROMYCIN 500 MG in SODIUM CHLORIDE 0.9% 250 ML IVPB ONE (01:30)
[2019-10-13] MEDS ORDERED: FUROSEMIDE 40 MG/4 ML IV ONE (01:30)
[2019-10-13] MEDS ORDERED: FUROSEMIDE 40 MG/4 ML ONE (01:47)
[2019-10-13] MEDS ORDERED: CEFTRIAXONE PMX 1GM/50ML 50 ML ONE (01:47)
--- NOTE | 2019-10-13 03:11 | NUR ---
Report given to Yoko MEDINA.
[2019-10-13] MEDS ORDERED: ENOXAPARIN 40 MG/0.4 ML SQ SCH (04:00)
[2019-10-13] MEDS ORDERED: ONDANSETRON 2MG/ML, 2ML IVPush PRN (04:00)
[2019-10-13 04:03] VITALS: BP 108/66
[2019-10-13] MEDS ORDERED: POTASSIUM CHLORIDE 20 MEQ TAB.ER.PRT PO ONE (04:30)
[2019-10-13 05:20] VITALS: BP 125/75
[2019-10-13] MEDS ORDERED: ALBUTEROL/IPRATROPIUM 2.5MG/0.5MG, 3 ML NPPB PRN (06:00)
[2019-10-13] MEDS ORDERED: ENOXAPARIN 60 MG/0.6 ML SQ SCH (06:30)
[2019-10-13] MEDS ORDERED: HEPARIN 25,000 UNITS/250ML PMX 250 ML IV PRN (06:30)
[2019-10-13] MEDS ORDERED: HEPARIN 5,000 UNITS/ML, 1ML IV PRN (06:30)
[2019-10-13] MEDS ORDERED: HEPARIN 5,000 UNITS/ML, 1ML IV ONE (06:30)
[2019-10-13] MEDS: ENOXAPARIN 60 MG/0.6 ML SQ SCH ×2 (07:39→16:56)
[2019-10-13 07:49] VITALS: BP 107/66
[2019-10-13] MEDS ORDERED: ENOXAPARIN 40 MG/0.4 ML SQ ONE (08:00)
[2019-10-13 08:29] LABS: INTERNATIONAL NORMALIZED RATIO 1.18 (0.93-1.1); PROTHROMBIN TIME 12.5 Seconds (9.6-11.5)
[2019-10-13] MEDS: FUROSEMIDE 20 MG/2 ML IV SCH ×2 (08:47→16:55)
[2019-10-13] MEDS: ACETAMINOPHEN 325 MG TABLET PO PRN (14:52)
[2019-10-13 15:37] VITALS: BP 119/63
[2019-10-13 19:56] VITALS: BP 102/71
[2019-10-13 21:46] VITALS: BP 106/66
[2019-10-13] MEDS: ATORVASTATIN 20 MG TABLET PO SCH (21:59)
[2019-10-13] MEDS: TAMSULOSIN 0.4 MG CAP.ER.24H PO SCH (21:59)
[2019-10-13] MEDS: CIMETIDINE 200 MG TABLET PO SCH (22:01)
[2019-10-14 00:57] VITALS: BP 109/70
[2019-10-14] MEDS: ACETAMINOPHEN 325 MG TABLET PO PRN ×3 (04:49→18:58)
[2019-10-14] MEDS: ENOXAPARIN 60 MG/0.6 ML SQ SCH ×2 (04:50→10:22)
[2019-10-14 06:03] LABS: BASOPHILS # (AUTO) 0.02 x10^3/uL (0-0.1); BASOPHILS % (AUTO) 0 % (0-1); EOSINOPHILS # (AUTO) 0.27 x10^3/uL (0-0.4); EOSINOPHILS % (AUTO) 3 % (1-7); LYMPHOCYTES # (AUTO) 1.25 x10^3/uL (1-3.4); LYMPHOCYTES % (AUTO) 14 % (22-44); MD NO; MEAN CORPUSCULAR HEMOGLOBIN 32.1 pg (27.5-34.5); MEAN CORPUSCULAR HGB CONC 33.4 g/dL (33.2-36.2); MEAN CORPUSCULAR VOLUME 96.1 fL (81-97); MEAN PLATELET VOLUME 10.6 fL (7.4-10.4); MONOCYTES # (AUTO) 0.97 x10^3/uL (0.2-0.8); MONOCYTES % (AUTO) 11 % (2-9); NEUTROPHILS % (AUTO) 73 % (42-75); PLATELET COUNT 290 x10^3/uL (130-400); RED BLOOD COUNT 3.63 x10^6/uL (4.38-5.82); RED CELL DISTRIBUTION WIDTH 13.9 % (9.4-14.8)
[2019-10-14 06:12] LABS: ALBUMIN 2.3 g/dL (3.4-5.0); ANION GAP 7 mmol/L (5-15); CALCIUM 8.3 mg/dL (8.5-10.1); CHLORIDE 104 mmol/L (98-107)
[2019-10-14 06:16] LABS: ALANINE AMINOTRANSFERASE 38 U/L (12-78); ALKALINE PHOSPHATASE 62 U/L (45-117); BILIRUBIN,TOTAL 0.7 mg/dL (0.2-1.0); CREATININE 0.97 mg/dL (0.7-1.3); TOTAL PROTEIN 6.8 g/dL (6.4-8.2)
[2019-10-14 07:40] VITALS: BP 105/60
[2019-10-14] MEDS: EPLERENONE 50 MG TABLET PO SCH (09:00)
[2019-10-14] MEDS: LISINOPRIL 10 MG TABLET PO SCH (09:00)
[2019-10-14] MEDS ORDERED: [UNRECOGNIZED DRUG - REMARK] PO SCH (09:00)
[2019-10-14] MEDS: [UNRECOGNIZED DRUG - REMARK] PO SCH (09:00)
[2019-10-14] MEDS: AMBRISENTAN 5 MG PO SCH (09:00)
[2019-10-14 10:08] LABS: CLOSTRIDIUM DIFFICILE ANTIGEN NEGATIVE; CLOSTRIDIUM DIFFICILE TOXIN NEGATIVE (Negative)
[2019-10-14] MEDS: CIMETIDINE 200 MG TABLET PO SCH ×2 (10:22→21:10)
[2019-10-14] MEDS: ASPIRIN 81 MG TABLET EC PO SCH (10:22)
[2019-10-14] MEDS: TAMSULOSIN 0.4 MG CAP.ER.24H PO SCH ×2 (10:22→21:10)
[2019-10-14 10:25] VITALS: BP 95/59
[2019-10-14 13:47] VITALS: BP 120/85
[2019-10-14] MEDS: FUROSEMIDE 40 MG/4 ML IV SCH (17:27)
[2019-10-14] MEDS: POTASSIUM CHLORIDE 20 MEQ TAB.ER.PRT PO SCH (17:28)
[2019-10-14 20:10] VITALS: BP 99/66
[2019-10-14] MEDS: ATORVASTATIN 20 MG TABLET PO SCH (21:10)
[2019-10-14 23:59] VITALS: BP 102/65
[2019-10-15] MEDS: ACETAMINOPHEN 325 MG TABLET PO PRN ×3 (02:02→17:56)
[2019-10-15] MEDS: ENOXAPARIN 60 MG/0.6 ML SQ SCH (04:57)
[2019-10-15 06:03] LABS: CHLORIDE 105 mmol/L (98-107)
[2019-10-15 06:10] LABS: ALANINE AMINOTRANSFERASE 31 U/L (12-78); ALBUMIN 2.4 g/dL (3.4-5.0); ALKALINE PHOSPHATASE 63 U/L (45-117); ANION GAP 4 mmol/L (5-15); BILIRUBIN,TOTAL 0.7 mg/dL (0.2-1.0); CALCIUM 8.4 mg/dL (8.5-10.1); TOTAL PROTEIN 6.7 g/dL (6.4-8.2)
[2019-10-15 06:54] VITALS: BP 108/68
[2019-10-15] MEDS: AMBRISENTAN 5 MG PO SCH (09:00)
[2019-10-15] MEDS: [UNRECOGNIZED DRUG - REMARK] PO SCH (09:00)
[2019-10-15] MEDS: POTASSIUM CHLORIDE 20 MEQ TAB.ER.PRT PO SCH (10:12)
[2019-10-15] MEDS: TAMSULOSIN 0.4 MG CAP.ER.24H PO SCH ×2 (10:12→20:16)
[2019-10-15] MEDS: ASPIRIN 81 MG TABLET EC PO SCH (10:12)
[2019-10-15] MEDS: EPLERENONE 50 MG TABLET PO SCH (10:13)
[2019-10-15] MEDS: CIMETIDINE 200 MG TABLET PO SCH ×2 (10:13→20:13)
[2019-10-15] MEDS: APIXABAN 5 MG TABLET PO SCH ×2 (10:16→20:14)
[2019-10-15 10:19] VITALS: BP 100/66
[2019-10-15] MEDS: FUROSEMIDE 40 MG/4 ML IV SCH (10:19)
[2019-10-15] MEDS: LISINOPRIL 10 MG TABLET PO SCH (10:20)
[2019-10-15 12:05] VITALS: BP 115/67
[2019-10-15] MEDS ORDERED: FUROSEMIDE 40 MG/4 ML IV SCH (13:00)
[2019-10-15] MEDS ORDERED: POTASSIUM CHLORIDE 20 MEQ TAB.ER.PRT PO SCH (13:00)
[2019-10-15 14:55] LABS: BASOPHILS # (AUTO) 0.04 x10^3/uL (0-0.1); BASOPHILS % (AUTO) 1 % (0-1); EOSINOPHILS # (AUTO) 0.19 x10^3/uL (0-0.4); EOSINOPHILS % (AUTO) 3 % (1-7); LYMPHOCYTES # (AUTO) 1.31 x10^3/uL (1-3.4); LYMPHOCYTES % (AUTO) 18 % (22-44); MD NO; MEAN CORPUSCULAR HEMOGLOBIN 32.8 pg (27.5-34.5); MEAN CORPUSCULAR VOLUME 99.2 fL (81-97); MEAN PLATELET VOLUME 11.4 fL (7.4-10.4); MONOCYTES # (AUTO) 0.81 x10^3/uL (0.2-0.8); MONOCYTES % (AUTO) 11 % (2-9); NEUTROPHILS # (AUTO) 4.92 x10^3/uL (1.8-6.8); NEUTROPHILS % (AUTO) 68 % (42-75); PLATELET COUNT 319 x10^3/uL (130-400); RED BLOOD COUNT 3.42 x10^6/uL (4.38-5.82)
[2019-10-15 20:00] VITALS: BP 118/68
[2019-10-15] MEDS: ATORVASTATIN 20 MG TABLET PO SCH (20:13)
[2019-10-15] MEDS ORDERED: OMNIPAQUE 350 MG/ML, 100ML BOTTLE ONE (21:02)
[2019-10-16 02:00] VITALS: BP 90/58
[2019-10-16] MEDS: ACETAMINOPHEN 325 MG TABLET PO PRN (03:01)
[2019-10-16 06:40] LABS: ALBUMIN 2.4 g/dL (3.4-5.0); ANION GAP 7 mmol/L (5-15); CALCIUM 8.1 mg/dL (8.5-10.1); CHLORIDE 103 mmol/L (98-107)
[2019-10-16 06:44] LABS: ALANINE AMINOTRANSFERASE 34 U/L (12-78); ALKALINE PHOSPHATASE 63 U/L (45-117); BILIRUBIN,TOTAL 0.3 mg/dL (0.2-1.0); TOTAL PROTEIN 6.5 g/dL (6.4-8.2)
[2019-10-16 06:50] VITALS: BP 108/57
[2019-10-16] MEDS: [UNRECOGNIZED DRUG - REMARK] PO SCH (08:29)
[2019-10-16] MEDS: AMBRISENTAN 5 MG PO SCH (08:30)
[2019-10-16] MEDS: ASPIRIN 81 MG TABLET EC PO SCH (08:30)
[2019-10-16] MEDS: TAMSULOSIN 0.4 MG CAP.ER.24H PO SCH ×2 (08:30→21:43)
[2019-10-16] MEDS: AMOXICILLIN/CLAV 875-125MG TABLET PO SCH ×2 (08:30→21:42)
[2019-10-16] MEDS: DOXYCYCLINE 100MG TABLET PO SCH ×2 (08:30→21:42)
[2019-10-16] MEDS: APIXABAN 5 MG TABLET PO SCH ×2 (08:31→21:42)
[2019-10-16] MEDS: EPLERENONE 50 MG TABLET PO SCH (08:31)
[2019-10-16] MEDS: CIMETIDINE 200 MG TABLET PO SCH ×2 (08:31→21:43)
[2019-10-16] MEDS ORDERED: FUROSEMIDE 40 MG/4 ML IV SCH (09:00)
[2019-10-16] MEDS ORDERED: POTASSIUM CHLORIDE 20 MEQ TAB.ER.PRT PO SCH (09:00)
[2019-10-16 12:18] VITALS: BP 95/60
[2019-10-16 18:22] VITALS: BP 94/52
[2019-10-16] MEDS: ATORVASTATIN 20 MG TABLET PO SCH (21:42)
[2019-10-16 23:49] VITALS: BP 91/54
[2019-10-17] MEDS: ACETAMINOPHEN 325 MG TABLET PO PRN ×4 (00:29→18:38)
[2019-10-17 08:17] LABS: ALANINE AMINOTRANSFERASE 37 U/L (12-78); ALBUMIN 2.5 g/dL (3.4-5.0); ANION GAP 4 mmol/L (5-15); CALCIUM 8.6 mg/dL (8.5-10.1); CHLORIDE 104 mmol/L (98-107); CREATININE 1.32 mg/dL (0.7-1.3)
[2019-10-17 08:19] LABS: ALKALINE PHOSPHATASE 70 U/L (45-117); BILIRUBIN,TOTAL 0.4 mg/dL (0.2-1.0); TOTAL PROTEIN 6.9 g/dL (6.4-8.2)
[2019-10-17 09:16] VITALS: BP 90/56
[2019-10-17 09:49] VITALS: BP 101/66
[2019-10-17] MEDS: DOXYCYCLINE 100MG TABLET PO SCH ×2 (10:03→22:26)
[2019-10-17] MEDS: AMOXICILLIN/CLAV 875-125MG TABLET PO SCH ×2 (10:03→22:26)
[2019-10-17] MEDS: ASPIRIN 81 MG TABLET EC PO SCH (10:03)
[2019-10-17] MEDS: EPLERENONE 50 MG TABLET PO SCH (10:03)
[2019-10-17] MEDS: CIMETIDINE 200 MG TABLET PO SCH ×2 (10:03→22:26)
[2019-10-17] MEDS: APIXABAN 5 MG TABLET PO SCH (10:03)
[2019-10-17] MEDS: TAMSULOSIN 0.4 MG CAP.ER.24H PO SCH ×2 (10:03→22:26)
[2019-10-17] MEDS: [UNRECOGNIZED DRUG - REMARK] PO SCH (11:38)
[2019-10-17] MEDS: AMBRISENTAN 5 MG PO SCH (11:38)
[2019-10-17] MEDS ORDERED: HEPARIN 25,000 UNITS/250ML PMX 250 ML IV PRN (13:00)
[2019-10-17] MEDS ORDERED: HEPARIN 5,000 UNITS/ML, 1ML IV ONE ×2 (13:00→22:00)
[2019-10-17] MEDS ORDERED: HEPARIN 5,000 UNITS/ML, 1ML IV PRN ×2 (13:00→22:00)
[2019-10-17 13:17] VITALS: BP 103/68
[2019-10-17 22:00] VITALS: BP 92/61
[2019-10-17] MEDS: ATORVASTATIN 20 MG TABLET PO SCH (22:26)
[2019-10-17] MEDS: HEPARIN 25,000 UNITS/250ML PMX 250 ML IV PRN (22:48)
[2019-10-18 03:45] VITALS: BP 119/75
[2019-10-18] MEDS: ACETAMINOPHEN 325 MG TABLET PO PRN ×4 (04:37→20:38)
[2019-10-18 04:40] LABS: ALBUMIN 2.4 g/dL (3.4-5.0); ANION GAP 6 mmol/L (5-15); CALCIUM 8.5 mg/dL (8.5-10.1); CHLORIDE 104 mmol/L (98-107)
[2019-10-18 04:44] LABS: ALANINE AMINOTRANSFERASE 35 U/L (12-78); ALKALINE PHOSPHATASE 68 U/L (45-117); BILIRUBIN,TOTAL 0.3 mg/dL (0.2-1.0); CREATININE 1.28 mg/dL (0.7-1.3); TOTAL PROTEIN 6.8 g/dL (6.4-8.2)
[2019-10-18 08:05] VITALS: BP 111/70
[2019-10-18] MEDS: DOXYCYCLINE 100MG TABLET PO SCH ×2 (08:30→20:38)
[2019-10-18] MEDS: ASPIRIN 81 MG TABLET EC PO SCH (08:30)
[2019-10-18] MEDS: TAMSULOSIN 0.4 MG CAP.ER.24H PO SCH ×2 (08:30→20:39)
[2019-10-18] MEDS: AMOXICILLIN/CLAV 875-125MG TABLET PO SCH ×2 (08:30→20:38)
[2019-10-18] MEDS: EPLERENONE 50 MG TABLET PO SCH (08:30)
[2019-10-18] MEDS: CIMETIDINE 200 MG TABLET PO SCH ×2 (08:30→20:39)
[2019-10-18] MEDS: AMBRISENTAN 5 MG PO SCH (08:31)
[2019-10-18] MEDS: [UNRECOGNIZED DRUG - REMARK] PO SCH (08:31)
[2019-10-18 13:10] VITALS: BP 110/67
[2019-10-18 19:48] VITALS: BP 100/58
[2019-10-18 20:36] VITALS: BP 120/75
[2019-10-18] MEDS: ATORVASTATIN 20 MG TABLET PO SCH (20:39)
[2019-10-19 01:20] VITALS: BP 114/74
[2019-10-19 05:06] LABS: ALBUMIN 2.6 g/dL (3.4-5.0); ANION GAP 6 mmol/L (5-15); CALCIUM 8.7 mg/dL (8.5-10.1); CHLORIDE 106 mmol/L (98-107)
[2019-10-19 05:11] LABS: ALANINE AMINOTRANSFERASE 29 U/L (12-78); ALKALINE PHOSPHATASE 65 U/L (45-117); BILIRUBIN,TOTAL 0.3 mg/dL (0.2-1.0); CREATININE 1.18 mg/dL (0.7-1.3); TOTAL PROTEIN 6.9 g/dL (6.4-8.2)
[2019-10-19] MEDS: ACETAMINOPHEN 325 MG TABLET PO PRN (06:19)
[2019-10-19] MEDS: HEPARIN 25,000 UNITS/250ML PMX 250 ML IV PRN (06:42)
[2019-10-19 08:04] VITALS: BP 108/62
[2019-10-19 08:15] VITALS: BP 105/66
[2019-10-19] MEDS ORDERED: POTASSIUM CHLORIDE 10 MEQ TABLET.ER PO SCH (08:30)
[2019-10-19] MEDS: [UNRECOGNIZED DRUG - REMARK] PO SCH (09:00)
[2019-10-19] MEDS: AMBRISENTAN 5 MG PO SCH (09:00)
[2019-10-19] MEDS: CIMETIDINE 200 MG TABLET PO SCH (09:17)
[2019-10-19] MEDS: EPLERENONE 50 MG TABLET PO SCH (09:17)
[2019-10-19] MEDS: AMOXICILLIN/CLAV 875-125MG TABLET PO SCH (09:17)
[2019-10-19] MEDS: DOXYCYCLINE 100MG TABLET PO SCH (09:17)
[2019-10-19] MEDS: TAMSULOSIN 0.4 MG CAP.ER.24H PO SCH (09:17)
[2019-10-19] MEDS: ASPIRIN 81 MG TABLET EC PO SCH (09:17)
[2019-10-19] MEDS ORDERED: POTA10TA5 PO (12:52)
[2019-10-19] MEDS ORDERED: AMOX1TAB12 PO (12:52)
[2019-10-19] MEDS ORDERED: FURO20TA3 PO (12:52)
[2019-10-19] MEDS ORDERED: DOXY100T PO (12:52)
[2019-10-19] MEDS ORDERED: APIX5TAB PO ×2 (13:23)
[2019-10-19 14:12] VITALS: BP 109/64
[2019-10-19] MEDS ORDERED: FUROSEMIDE 20 MG TABLET PO SCH (17:00)
[2019-10-19] MEDS ORDERED: APIXABAN 5 MG TABLET PO SCH (21:00)
== END 2019-10-19 15:03 | disposition home or self-care (01) | DRG 299 ==
LOC: ED 23:37 → 5SO 10-13 03:33 → ED 10-13 04:31 → 5SO 10-13 04:33
PROVIDERS: ADMIT Family Medicine; ATTEND Internal Medicine
DX: I82.621 Acute embolism and thrombosis of deep veins of right upper extremity (principal); N17.0 Acute kidney failure with tubular necrosis; I50.33 Acute on chronic diastolic (congestive) heart failure; J96.01 Acute respiratory failure with hypoxia; J15.9 Unspecified bacterial pneumonia; E66.2 Morbid (severe) obesity with alveolar hypoventilation; D64.9 Anemia, unspecified; E78.5 Hyperlipidemia, unspecified; I07.1 Rheumatic tricuspid insufficiency; I11.0 Hypertensive heart disease with heart failure; I45.9 Conduction disorder, unspecified; Z66 Do not resuscitate; Z86.74 Personal history of sudden cardiac arrest; Z87.891 Personal history of nicotine dependence; Z91.19 Patient's noncompliance with other medical treatment and regimen; Z90.49 Acquired absence of other specified parts of digestive tract; Z91.040 Latex allergy status; Z88.5 Allergy status to narcotic agent; Z91.018 Allergy to other foods
CPT/HCPCS: 36415; 71045; 71275; 76604; 80053; 83605; 83880; 84145; 84484; 85025; 85520; 85610; 85730; 87040; 87324; 93005; 94640; 96374; 96375; G0378; J0456; J0696; J1644; J1650; J1940; Q9967; J7050

== ENCOUNTER 2019-10-31 07:56 | Inpatient (IN) | payer MEDICAID, OTHER ==
[~2019-10-31] VITALS: Ht 137.2 cm; Wt 66.1 kg
[~2019-10-31 07:56] MED LIST changes: +AMOX1TAB12 PO; +APIX5TAB PO; +DOXY100T PO; +FURO20TA3 PO; +POTA10TA5 PO
[2019-10-31 08:37] LABS: BASOPHILS # (AUTO) 0.04 x10^3/uL (0-0.1); BASOPHILS % (AUTO) 1 % (0-1); EOSINOPHILS # (AUTO) 0.25 x10^3/uL (0-0.4); EOSINOPHILS % (AUTO) 3 % (1-7); LYMPHOCYTES # (AUTO) 2.07 x10^3/uL (1-3.4); LYMPHOCYTES % (AUTO) 25 % (22-44); MD NO; MEAN CORPUSCULAR HEMOGLOBIN 32.2 pg (27.5-34.5); MEAN CORPUSCULAR VOLUME 97.5 fL (81-97); MEAN PLATELET VOLUME 8.3 fL (7.4-10.4); MONOCYTES # (AUTO) 1.13 x10^3/uL (0.2-0.8); MONOCYTES % (AUTO) 14 % (2-9); NEUTROPHILS % (AUTO) 58 % (42-75); PLATELET COUNT 360 x10^3/uL (130-400); RED BLOOD COUNT 3.45 x10^6/uL (4.38-5.82); RED CELL DISTRIBUTION WIDTH 16.3 % (9.4-14.8)
[2019-10-31 08:40] LABS: ANION GAP 4 mmol/L (5-15); CALCIUM 8.4 mg/dL (8.5-10.1); CHLORIDE 108 mmol/L (98-107); CREATININE 1.01 mg/dL (0.7-1.3)
[2019-10-31 08:44] LABS: TROPONIN I < 0.015 ng/mL (0.000-0.045)
[2019-10-31] MEDS ORDERED: ALBUTEROL SULFATE 2.5 MG/3 ML ONE (08:44)
--- NOTE | 2019-10-31 08:59 | NUR ---
PT UPRIGHT ON GURNEY AWAKE & MORE COMFORTABLE AFTER RT TX, RESPONDS APPROP TO STAFF, COMFORT MEASURES PROVIDED, CALL LIGHT WITHIN REACH.
[2019-10-31] MEDS ORDERED: OMNIPAQUE 350 MG/ML, 100ML BOTTLE ONE (09:58)
--- NOTE | 2019-10-31 11:06 | NUR ---
REPORT GIVEN TO NIDA
--- NOTE | 2019-10-31 11:07 | NUR ---
PT REPORT FROM ADAM MARVIN. PT CARE TO BE ASSUMED. DR ALLRED AT BS.
--- NOTE | 2019-10-31 11:19 | NUR ---
LAB AT BS. PT C/O ACHING PAIN TO RT ARM, "MY BLOOD CLOT ARM". C/O DYPSNEA; PANTING RESP NOTED. PT REPORTS HE WAS USING HOME OXYGEN FOR PAST TWO DAYS AT 3LNC. CURRENTLY: O2 AT 3LNC, IV 20G LAC, SUPERVISOR SEWING ROOM: SINUS TACH. SIDE RAIL UP X1, CALL LIGHT W/IN REACH. PT SPEAKING ON CELL PHONE TO HIS MOM.
[2019-10-31] MEDS ORDERED: VANCOMYCIN PER PHARMACY MC PRN (11:30)
[2019-10-31] MEDS ORDERED: PIPERACILLIN/TAZO/PMX 3.375GM 50 ML ONE ×2 (11:30→18:44)
[2019-10-31] MEDS ORDERED: ALBUTEROL SULFATE 2.5 MG/3 ML NPPB SCH (11:30)
[2019-10-31] MEDS ORDERED: APIXABAN 5 MG TABLET ONE ×2 (11:30→20:32)
--- NOTE | 2019-10-31 11:37 | NUR ---
NO BLD CX BAND ON PT. NO ORDER FOR BLD CX IN PT CHART. WILL CONSULT DR PENNINGTON.
--- NOTE | 2019-10-31 11:40 | NUR ---
VO FROM DR PENNINGTON: BLOOD CX AND LACTATE.
--- NOTE | 2019-10-31 11:42 | NUR ---
LAB ORDER PLACED.
[2019-10-31] MEDS: APIXABAN 5 MG TABLET PO SCH ×2 (11:46→20:38)
[2019-10-31] MEDS ORDERED: methylPREDNISolone SOD SUCC 125 MG/2 ML ONE ×2 (11:49→19:32)
--- NOTE | 2019-10-31 11:57 | NUR ---
BLD CX DRAWN X 2 AND WRIST BAND PLACED PER EHS ENGINEER.
[2019-10-31] MEDS ORDERED: ONDANSETRON ODT 4 MG PO PRN (12:00)
[2019-10-31] MEDS ORDERED: ONDANSETRON 2MG/ML, 2ML IVPush PRN (12:00)
[2019-10-31] MEDS ORDERED: ACETAMINOPHEN 325 MG TABLET PO PRN (12:00)
[2019-10-31] MEDS ORDERED: BACLOFEN 10 MG TABLET PO PRN (12:00)
[2019-10-31] MEDS ORDERED: hydrALAzine 20 MG/ML, 1ML IVPush PRN (12:00)
[2019-10-31] MEDS ORDERED: morphine SULFATE 10 MG/ML, 1ML IVPush PRN (12:00)
[2019-10-31] MEDS: methylPREDNISolone SOD SUCC 125 MG/2 ML IVPush SCH ×2 (12:02→19:36)
[2019-10-31] MEDS: PIPERACILLIN/TAZO/PMX 3.375GM 50 ML IV SCH ×2 (12:05→18:51)
--- NOTE | 2019-10-31 12:06 | NUR ---
ELIQUIS, SOLUMEDROL GIVEN PER EMAROscar FLOWERS, INFUSING AT 100ML/HR VIA PUMP. IV SITE PATENT.
[2019-10-31] MEDS ORDERED: PHARMACOKINETIC MONITORING MC PRN (12:30)
--- NOTE | 2019-10-31 13:10 | NUR ---
PT AMBULATORY TO & FROM [facility], GAIT STEADY. PT VERY WINDED UPON RETURN; STATES HE HAS IMPROVED FROM PRIOR HOSPITAL VISIT WHEN HE COULD ONLY WALK TO THE DOOR OF THE ROOM. MONITORING EQUIPMENT REAPPLIED. CALL LIGHT W/IN REACH. SIDE RAIL UP X1.
--- NOTE | 2019-10-31 13:15 | NUR ---
DIET TRAY ORDERED.
--- NOTE | 2019-10-31 13:52 | NUR ---
LUNCH TRAY DELIVERED.
--- NOTE | 2019-10-31 14:44 | NUR ---
CALLED PHARMACY RE: VANCOMYCIN. MEDICATION WILL BE SENT TO ED SOON, PER TECH.
--- NOTE | 2019-10-31 14:55 | NUR ---
100% OF LUNCH TRAY CONSUMED. INCENTIVE SPIROMETER PROVIDED.
--- NOTE | 2019-10-31 14:58 | NUR ---
PT REPORTS RT ARM "ACHES". REFUSED PAIN MED, AT THIS TIME; PREFERS TO WAIT FOR VANCOMYCIN ARRIVAL.
--- NOTE | 2019-10-31 15:00 | NUR ---
HOSPITAL BED ORDERED
--- NOTE | 2019-10-31 15:13 | NUR ---
ULTRAM GIVEN PER EMAR. WATER BOTTLE 360ML PROVIDED
[2019-10-31] MEDS: VANCOMYCIN 1,300 MG in SODIUM CHLORIDE 0.9% 250 ML IV SCH (15:18)
--- NOTE | 2019-10-31 15:18 | NUR ---
VANCOMYCIN HUNG, INFUSING VIA PUMP AT 166.7ML/HR, IV SITE PATENT.
--- NOTE | 2019-10-31 16:10 | NUR ---
PT RESTING QUIETLY ON BED. VANCOMYCIN INFUSING VIA PUMP; IV SITE PATENT.
--- NOTE | 2019-10-31 18:00 | NUR ---
HOSPITAL BED DELIVERED TO PT ROOM. PT AMBULATORY TO & FROM [facility]; GAIT STEADY. VERY WINDED AFTER WALKING.
--- NOTE | 2019-10-31 18:02 | NUR ---
DINNER TRAY ORDERED.
--- NOTE | 2019-10-31 18:42 | NUR ---
DINNER TRAY DELIVERED.
--- NOTE | 2019-10-31 18:52 | NUR ---
MARTY FLOWERS, INFUSING AT 100ML/HR VIA PUMP. IV SITE PATENT.
--- NOTE | 2019-10-31 19:29 | NUR ---
PT MOVED FROM ED TR01 TO ED ROOM 38.
--- NOTE | 2019-10-31 19:37 | NUR ---
SOLUMEDROL GIVEN PER EMAR. PT RESTING COMFORTABLY ON HOSPITAL BED. CALL LIGHT W/IN REACH.
--- NOTE | 2019-10-31 20:18 | NUR ---
PT REPORT TO HILLARY POST RN. PT CARE TRANSFERRED.
[2019-10-31] MEDS ORDERED: TAMSULOSIN 0.4 MG CAP.ER.24H ONE (20:32)
[2019-10-31] MEDS: TAMSULOSIN 0.4 MG CAP.ER.24H PO SCH (20:37)
[2019-10-31] MEDS ORDERED: CIMETIDINE 400 MG TABLET PO SCH (21:00)
[2019-10-31] MEDS ORDERED: FAMOTIDINE 20 MG TABLET ONE (21:45)
[2019-10-31] MEDS: FAMOTIDINE 20 MG TABLET PO SCH (21:49)
[2019-10-31] MEDS: ATORVASTATIN 20 MG TABLET PO SCH (21:49)
[2019-10-31] MEDS ORDERED: ALBUTEROL/IPRATROPIUM 2.5MG/0.5MG, 3 ML NPPB PRN (22:00)
--- NOTE | 2019-10-31 22:15 | NUR ---
PT'S MEDICATIONS: TADALAFIL 20MG TAB, ONE TAB PO DAILY AND AMBRISENTAN 5MG TAB, ONE TAB PO DAILY CLEARED FOR PT USE PER CORPORATION LAWYER. PT REPORTS THAT HE TAKES THESE TWO MEDICATIONS IN THE MORNING. MEDICATIONS RETURNED TO PT POSSESSION.
--- NOTE | 2019-10-31 23:02 | NUR ---
REPORT OF PT FROM ADAM ALVA AND ASSUMING CARE OF PT AT THIS TIME.
[2019-11-01] MEDS ORDERED: PIPERACILLIN/TAZO/PMX 3.375GM 50 ML ONE (02:00)
--- NOTE | 2019-11-01 02:13 | NUR ---
REPORT OF PT TO ADAM DAVID. ALL QUESTIONS ANSWERED. TECH PAGED FOR TRANSPORT OF PT FROM ED TO FLOOR.
[2019-11-01 03:16] VITALS: BP 123/75
[2019-11-01] MEDS: methylPREDNISolone SOD SUCC 40 MG/ML IVPush SCH ×3 (03:55→20:10)
[2019-11-01 05:54] LABS: BASOPHILS # (AUTO) 0.02 x10^3/uL (0-0.1); BASOPHILS % (AUTO) 0 % (0-1); EOSINOPHILS # (AUTO) 0.07 x10^3/uL (0-0.4); EOSINOPHILS % (AUTO) 1 % (1-7); LYMPHOCYTES # (AUTO) 1.22 x10^3/uL (1-3.4); LYMPHOCYTES % (AUTO) 16 % (22-44); MD NO; MEAN CORPUSCULAR HEMOGLOBIN 31.9 pg (27.5-34.5); MEAN CORPUSCULAR HGB CONC 32.7 g/dL (33.2-36.2); MEAN CORPUSCULAR VOLUME 97.6 fL (81-97); MEAN PLATELET VOLUME 8.6 fL (7.4-10.4); MONOCYTES # (AUTO) 0.14 x10^3/uL (0.2-0.8); MONOCYTES % (AUTO) 2 % (2-9); NEUTROPHILS # (AUTO) 6.09 x10^3/uL (1.8-6.8); NEUTROPHILS % (AUTO) 81 % (42-75); PLATELET COUNT 326 x10^3/uL (130-400); RED CELL DISTRIBUTION WIDTH 16.4 % (9.4-14.8)
[2019-11-01 06:09] LABS: CHLORIDE 106 mmol/L (98-107)
[2019-11-01 06:18] LABS: CALCIUM 8.7 mg/dL (8.5-10.1)
[2019-11-01] MEDS: PIPERACILLIN/TAZO/PMX 3.375GM 50 ML IV SCH ×5 (06:32→23:45)
[2019-11-01 06:39] LABS: ANION GAP 7 mmol/L (5-15)
[2019-11-01] MEDS: ASPIRIN 81 MG TABLET EC PO SCH (09:00)
[2019-11-01] MEDS: AMBRISENTAN HOMEMEDPO SCH (09:00)
[2019-11-01] MEDS: TADALAFIL HOMEMEDPO SCH (09:00)
[2019-11-01] MEDS: EPLERENONE 50 MG TABLET PO SCH (09:00)
[2019-11-01] MEDS: VANCOMYCIN 1,300 MG in SODIUM CHLORIDE 0.9% 250 ML IV SCH (09:23)
[2019-11-01] MEDS: TAMSULOSIN 0.4 MG CAP.ER.24H PO SCH ×2 (09:24→20:10)
[2019-11-01] MEDS: APIXABAN 5 MG TABLET PO SCH ×2 (09:24→20:10)
[2019-11-01] MEDS: FAMOTIDINE 20 MG TABLET PO SCH ×2 (09:24→20:10)
[2019-11-01 09:48] VITALS: BP 118/72
[2019-11-01] MEDS: ALBUTEROL/IPRATROPIUM 2.5MG/0.5MG, 3 ML NPPB SCH ×2 (11:15→20:22)
[2019-11-01] MEDS: BUDESONIDE 0.5 MG/2 ML INHA NPPB SCH ×2 (11:15→20:22)
[2019-11-01 16:02] VITALS: BP 117/63
[2019-11-01] MEDS: ATORVASTATIN 20 MG TABLET PO SCH (20:10)
[2019-11-01 20:15] VITALS: BP 128/70
[2019-11-02 01:13] VITALS: BP 121/64
[2019-11-02] MEDS: VANCOMYCIN 1,300 MG in SODIUM CHLORIDE 0.9% 250 ML IV SCH ×2 (02:25→20:42)
[2019-11-02] MEDS: methylPREDNISolone SOD SUCC 40 MG/ML IVPush SCH ×2 (05:10→11:46)
[2019-11-02] MEDS: PIPERACILLIN/TAZO/PMX 3.375GM 50 ML IV SCH ×3 (05:10→16:58)
[2019-11-02 06:06] LABS: CHLORIDE 109 mmol/L (98-107)
[2019-11-02 06:07] LABS: BASOPHILS % (AUTO) 0 % (0-1); EOSINOPHILS # (AUTO) 0.07 x10^3/uL (0-0.4); EOSINOPHILS % (AUTO) 1 % (1-7); LYMPHOCYTES # (AUTO) 1.15 x10^3/uL (1-3.4); LYMPHOCYTES % (AUTO) 11 % (22-44); MD NO; MEAN CORPUSCULAR HEMOGLOBIN 32.4 pg (27.5-34.5); MEAN CORPUSCULAR HGB CONC 32.9 g/dL (33.2-36.2); MEAN CORPUSCULAR VOLUME 98.6 fL (81-97); MEAN PLATELET VOLUME 8.3 fL (7.4-10.4); MONOCYTES % (AUTO) 6 % (2-9); NEUTROPHILS # (AUTO) 8.52 x10^3/uL (1.8-6.8); NEUTROPHILS % (AUTO) 82 % (42-75); PLATELET COUNT 361 x10^3/uL (130-400); RED BLOOD COUNT 3.11 x10^6/uL (4.38-5.82); RED CELL DISTRIBUTION WIDTH 16.8 % (9.4-14.8)
[2019-11-02 06:12] LABS: ANION GAP 6 mmol/L (5-15); CALCIUM 9.3 mg/dL (8.5-10.1); CREATININE 1.17 mg/dL (0.7-1.3)
[2019-11-02 07:48] VITALS: BP 117/67
[2019-11-02] MEDS: APIXABAN 5 MG TABLET PO SCH ×2 (08:35→20:42)
[2019-11-02] MEDS: ASPIRIN 81 MG TABLET EC PO SCH (08:35)
[2019-11-02] MEDS: FAMOTIDINE 20 MG TABLET PO SCH ×2 (08:35→20:42)
[2019-11-02] MEDS: EPLERENONE 50 MG TABLET PO SCH (08:35)
[2019-11-02] MEDS: TAMSULOSIN 0.4 MG CAP.ER.24H PO SCH ×2 (08:35→20:42)
[2019-11-02] MEDS: AMBRISENTAN HOMEMEDPO SCH (08:35)
[2019-11-02] MEDS: TADALAFIL HOMEMEDPO SCH (08:36)
[2019-11-02] MEDS: ALBUTEROL/IPRATROPIUM 2.5MG/0.5MG, 3 ML NPPB SCH ×2 (10:00→20:58)
[2019-11-02] MEDS: BUDESONIDE 0.5 MG/2 ML INHA NPPB SCH ×2 (10:00→20:58)
[2019-11-02 12:06] VITALS: BP 100/64
[2019-11-02] MEDS: FUROSEMIDE 20 MG/2 ML IV SCH (16:59)
[2019-11-02] MEDS: ATORVASTATIN 20 MG TABLET PO SCH (20:42)
[2019-11-02 20:50] VITALS: BP 134/76
[2019-11-03] MEDS: PIPERACILLIN/TAZO/PMX 3.375GM 50 ML IV SCH ×4 (00:13→17:49)
[2019-11-03 00:17] VITALS: BP 122/73
[2019-11-03 05:52] LABS: BASOPHILS # (AUTO) 0.01 x10^3/uL (0-0.1); BASOPHILS % (AUTO) 0 % (0-1); EOSINOPHILS % (AUTO) 0 % (1-7); LYMPHOCYTES # (AUTO) 1.42 x10^3/uL (1-3.4); LYMPHOCYTES % (AUTO) 13 % (22-44); MD NO; MEAN CORPUSCULAR HEMOGLOBIN 32.2 pg (27.5-34.5); MEAN CORPUSCULAR HGB CONC 32.8 g/dL (33.2-36.2); MEAN CORPUSCULAR VOLUME 98.1 fL (81-97); MEAN PLATELET VOLUME 8.6 fL (7.4-10.4); MONOCYTES # (AUTO) 1.21 x10^3/uL (0.2-0.8); MONOCYTES % (AUTO) 11 % (2-9); NEUTROPHILS # (AUTO) 8.42 x10^3/uL (1.8-6.8); NEUTROPHILS % (AUTO) 76 % (42-75); PLATELET COUNT 343 x10^3/uL (130-400); RED CELL DISTRIBUTION WIDTH 16.2 % (9.4-14.8)
[2019-11-03 06:00] LABS: ANION GAP 6 mmol/L (5-15); CALCIUM 8.6 mg/dL (8.5-10.1); CHLORIDE 108 mmol/L (98-107); CREATININE 1.05 mg/dL (0.7-1.3)
[2019-11-03] MEDS: ALBUTEROL/IPRATROPIUM 2.5MG/0.5MG, 3 ML NPPB SCH ×2 (07:35→20:30)
[2019-11-03] MEDS: BUDESONIDE 0.5 MG/2 ML INHA NPPB SCH ×2 (07:35→20:30)
[2019-11-03 08:09] VITALS: BP 103/57
[2019-11-03] MEDS: ASPIRIN 81 MG TABLET EC PO SCH (08:40)
[2019-11-03] MEDS: FUROSEMIDE 20 MG/2 ML IV SCH (08:40)
[2019-11-03] MEDS: EPLERENONE 50 MG TABLET PO SCH (08:46)
[2019-11-03] MEDS: AMBRISENTAN HOMEMEDPO SCH (08:46)
[2019-11-03] MEDS: FAMOTIDINE 20 MG TABLET PO SCH ×2 (08:46→22:04)
[2019-11-03] MEDS: TADALAFIL HOMEMEDPO SCH (08:46)
[2019-11-03] MEDS: TAMSULOSIN 0.4 MG CAP.ER.24H PO SCH ×2 (08:46→22:04)
[2019-11-03] MEDS: APIXABAN 5 MG TABLET PO SCH ×2 (08:46→22:04)
[2019-11-03] MEDS ORDERED: VANCOMYCIN 1,400 MG in SODIUM CHLORIDE 0.9% 250 ML IV SCH (15:00)
[2019-11-03] MEDS: VANCOMYCIN 1,300 MG in SODIUM CHLORIDE 0.9% 250 ML IV SCH (16:00)
[2019-11-03 16:04] VITALS: BP 108/70
[2019-11-03 22:03] VITALS: BP 123/71
[2019-11-03] MEDS: ATORVASTATIN 20 MG TABLET PO SCH (22:04)
[2019-11-04] MEDS: PIPERACILLIN/TAZO/PMX 3.375GM 50 ML IV SCH ×4 (00:09→18:17)
[2019-11-04 00:46] VITALS: BP 131/84
[2019-11-04] MEDS: VANCOMYCIN 1,300 MG in SODIUM CHLORIDE 0.9% 250 ML IV SCH ×2 (03:41→16:06)
[2019-11-04 06:22] LABS: ANION GAP 6 mmol/L (5-15); CALCIUM 8.5 mg/dL (8.5-10.1); CHLORIDE 107 mmol/L (98-107)
[2019-11-04 06:23] LABS: CREATININE 1.04 mg/dL (0.7-1.3)
[2019-11-04] MEDS: BUDESONIDE 0.5 MG/2 ML INHA NPPB SCH ×2 (07:20→21:05)
[2019-11-04] MEDS: ALBUTEROL/IPRATROPIUM 2.5MG/0.5MG, 3 ML NPPB SCH ×2 (07:20→21:05)
[2019-11-04 08:06] VITALS: BP 112/69
[2019-11-04] MEDS: ASPIRIN 81 MG TABLET EC PO SCH (08:09)
[2019-11-04] MEDS: APIXABAN 5 MG TABLET PO SCH ×2 (08:09→21:00)
[2019-11-04] MEDS: EPLERENONE 50 MG TABLET PO SCH (08:09)
[2019-11-04] MEDS: FUROSEMIDE 20 MG/2 ML IV SCH (08:09)
[2019-11-04] MEDS: TAMSULOSIN 0.4 MG CAP.ER.24H PO SCH ×2 (08:09→20:59)
[2019-11-04] MEDS: FAMOTIDINE 20 MG TABLET PO SCH ×2 (08:09→21:00)
[2019-11-04] MEDS: AMBRISENTAN HOMEMEDPO SCH (08:11)
[2019-11-04] MEDS: TADALAFIL HOMEMEDPO SCH (08:12)
[2019-11-04] MEDS ORDERED: FUROSEMIDE 20 MG/2 ML IV ONE (14:00)
[2019-11-04 14:30] VITALS: BP 129/71
[2019-11-04] MEDS: ATORVASTATIN 20 MG TABLET PO SCH (21:00)
[2019-11-04 21:02] VITALS: BP 126/70
[2019-11-05] MEDS: PIPERACILLIN/TAZO/PMX 3.375GM 50 ML IV SCH ×3 (00:01→12:18)
[2019-11-05 01:13] VITALS: BP 113/59
[2019-11-05] MEDS: VANCOMYCIN 1,300 MG in SODIUM CHLORIDE 0.9% 250 ML IV SCH (04:05)
[2019-11-05 04:40] LABS: BASOPHILS # (AUTO) 0.05 x10^3/uL (0-0.1); BASOPHILS % (AUTO) 1 % (0-1); EOSINOPHILS % (AUTO) 0 % (1-7); LYMPHOCYTES # (AUTO) 1.62 x10^3/uL (1-3.4); LYMPHOCYTES % (AUTO) 17 % (22-44); MD NO; MEAN CORPUSCULAR VOLUME 97.2 fL (81-97); MEAN PLATELET VOLUME 8.4 fL (7.4-10.4); MONOCYTES # (AUTO) 0.83 x10^3/uL (0.2-0.8); MONOCYTES % (AUTO) 9 % (2-9); NEUTROPHILS # (AUTO) 6.77 x10^3/uL (1.8-6.8); NEUTROPHILS % (AUTO) 73 % (42-75); PLATELET COUNT 331 x10^3/uL (130-400); RED BLOOD COUNT 3.28 x10^6/uL (4.38-5.82); RED CELL DISTRIBUTION WIDTH 16.2 % (9.4-14.8)
[2019-11-05 04:51] LABS: ANION GAP 7 mmol/L (5-15); CALCIUM 8.5 mg/dL (8.5-10.1); CHLORIDE 104 mmol/L (98-107); CREATININE 1.13 mg/dL (0.7-1.3)
[2019-11-05 04:52] LABS: VANCOMYCIN,TROUGH 36.3 mcg/mL (5.0-10.0)
[2019-11-05 07:13] VITALS: BP 120/73
[2019-11-05] MEDS: EPLERENONE 50 MG TABLET PO SCH (09:54)
[2019-11-05] MEDS: ASPIRIN 81 MG TABLET EC PO SCH (09:54)
[2019-11-05] MEDS: APIXABAN 5 MG TABLET PO SCH (09:54)
[2019-11-05] MEDS: TAMSULOSIN 0.4 MG CAP.ER.24H PO SCH (09:54)
[2019-11-05] MEDS: FAMOTIDINE 20 MG TABLET PO SCH (09:54)
[2019-11-05] MEDS: FUROSEMIDE 20 MG/2 ML IV SCH (09:55)
[2019-11-05] MEDS: TADALAFIL HOMEMEDPO SCH (09:55)
[2019-11-05] MEDS: AMBRISENTAN HOMEMEDPO SCH (09:55)
[2019-11-05] MEDS: BUDESONIDE 0.5 MG/2 ML INHA NPPB SCH (10:00)
[2019-11-05] MEDS: ALBUTEROL/IPRATROPIUM 2.5MG/0.5MG, 3 ML NPPB SCH (10:00)
[2019-11-05 14:13] VITALS: BP 100/50
[2019-11-05] MEDS ORDERED: CEFD300C37 PO (14:59)
[2019-11-05] MEDS ORDERED: PRED5TAB PO (14:59)
[2019-11-05] MEDS ORDERED: POTA20TA91 PO (14:59)
[2019-11-05] MEDS ORDERED: DOXY100T23 PO (14:59)
[2019-11-05] MEDS ORDERED: IPRA3AMP30 NPPB (14:59)
[2019-11-05] MEDS ORDERED: FURO-92 PO (14:59)
== END 2019-11-05 17:08 | disposition home or self-care (01) | DRG 193 ==
LOC: ED 08:52 → SUATTDRO 10:57 → EDIP 10:58 → 4EST 11-01 02:45
PROVIDERS: ADMIT Hospitalist; ATTEND Hospitalist
DX: J18.0 Bronchopneumonia, unspecified organism (principal); J96.21 Acute and chronic respiratory failure with hypoxia; I50.33 Acute on chronic diastolic (congestive) heart failure; J44.0 Chronic obstructive pulmonary disease with (acute) lower respiratory infection; J44.1 Chronic obstructive pulmonary disease with (acute) exacerbation; I82.621 Acute embolism and thrombosis of deep veins of right upper extremity; R65.10 Systemic inflammatory response syndrome (SIRS) of non-infectious origin without acute organ dysfunction; I11.0 Hypertensive heart disease with heart failure; J45.909 Unspecified asthma, uncomplicated; E66.9 Obesity, unspecified; E78.5 Hyperlipidemia, unspecified; D64.9 Anemia, unspecified; G47.33 Obstructive sleep apnea (adult) (pediatric); Y95 Nosocomial condition; Z79.01 Long term (current) use of anticoagulants; Z90.49 Acquired absence of other specified parts of digestive tract; Z87.891 Personal history of nicotine dependence; Z79.899 Other long term (current) drug therapy; Z79.82 Long term (current) use of aspirin; Z86.718 Personal history of other venous thrombosis and embolism; Z91.19 Patient's noncompliance with other medical treatment and regimen; Z68.35 Body mass index [BMI] 35.0-35.9, adult
CPT/HCPCS: 36415; 36600; J7626; 71046; 71275; 80048; 80202; 82040; 82803; 83605; 83735; 83880; 84100; 84484; 85025; 87040; 93005; 94640; G0378; J2543; J3370; Q9967; J1940; J2920; J2930; J7050; J7512

== ENCOUNTER 2019-11-26 02:36 | Inpatient (IN) | payer MEDICAID ==
[~2019-11-26] VITALS: Ht 137.2 cm; Wt 74.8 kg
[~2019-11-26 02:36] MED LIST changes: +CEFD300C37 PO; +DOXY100T23 PO; +FURO-92 PO; +IPRA3AMP30 NPPB; +POTA20TA91 PO; +PRED5TAB PO
--- NOTE | 2019-11-26 03:00 | NUR ---
Patient presents to ER c/o SOB x2 days. Respirations labored; use of accessory muscles. Patient speaking in eic-iz-qnmsy word sentences. Patient is breathing shallow with wheezes. Skin PWD. Patient has a resp hx since Sep this year which he was admitted for. Patient used one breathing tx at home today with no relief.
[2019-11-26] MEDS ORDERED: ALBUTEROL/IPRATROPIUM 2.5MG/0.5MG, 3 ML ONE (03:11)
[2019-11-26] MEDS ORDERED: ALBUTEROL/IPRATROPIUM 2.5MG/0.5MG, 3 ML NPPB ONE (03:30)
[2019-11-26] MEDS ORDERED: SODIUM CHLORIDE FLUSH 10ML SYR IVF ONE (03:30)
--- NOTE | 2019-11-26 03:32 | NUR ---
ADAM Wilkerson in room providing breathing tx.
[2019-11-26 03:39] LABS: BASOPHILS # (AUTO) 0.03 x10^3/uL (0-0.1); BASOPHILS % (AUTO) 0 % (0-1); EOSINOPHILS % (AUTO) 4 % (1-7); LYMPHOCYTES % (AUTO) 37 % (22-44); MD NO; MEAN CORPUSCULAR HEMOGLOBIN 33.2 pg (27.5-34.5); MEAN CORPUSCULAR VOLUME 97.8 fL (81-97); MEAN PLATELET VOLUME 8.2 fL (7.4-10.4); MONOCYTES # (AUTO) 0.64 x10^3/uL (0.2-0.8); MONOCYTES % (AUTO) 8 % (2-9); NEUTROPHILS # (AUTO) 4.02 x10^3/uL (1.8-6.8); NEUTROPHILS % (AUTO) 51 % (42-75); PLATELET COUNT 274 x10^3/uL (130-400); RED BLOOD COUNT 3.46 x10^6/uL (4.38-5.82); RED CELL DISTRIBUTION WIDTH 16.6 % (9.4-14.8)
--- NOTE | 2019-11-26 03:43 | NUR ---
duoneb with airborne precations, pt educated on reason for airborne precautions. pt tolerated well however still with increased work of breathing. pt attached to all monitors and pt in high fowlers to promote deep breaths.
[2019-11-26 03:48] LABS: ALANINE AMINOTRANSFERASE 23 U/L (12-78); ALBUMIN 3.1 g/dL (3.4-5.0); ANION GAP 4 mmol/L (5-15); CALCIUM 8.4 mg/dL (8.5-10.1); CHLORIDE 103 mmol/L (98-107); CREATININE 1.15 mg/dL (0.7-1.3)
[2019-11-26 03:52] LABS: ALKALINE PHOSPHATASE 74 U/L (45-117); BILIRUBIN,TOTAL 0.3 mg/dL (0.2-1.0); TOTAL PROTEIN 7.2 g/dL (6.4-8.2); TROPONIN I < 0.015 ng/mL (0.000-0.045)
[2019-11-26] MEDS ORDERED: APIX5TAB PO (03:53)
--- NOTE | 2019-11-26 04:07 | NUR ---
Patient states he is breathing slightly better. Patient RR remains the same but wheezes are decreased.
[2019-11-26] MEDS ORDERED: PIPERACILLIN/TAZO/PMX 3.375GM 50 ML ONE (04:14)
[2019-11-26] MEDS ORDERED: VANCOMYCIN PER PHARMACY MC ONE (04:30)
[2019-11-26] MEDS ORDERED: PIPERACILLIN/TAZO/PMX 3.375GM 50 ML IVPB ONE (04:30)
[2019-11-26] MEDS ORDERED: VANCOMYCIN 1,400 MG in SODIUM CHLORIDE 0.9% 250 ML IV ONE (04:30)
--- NOTE | 2019-11-26 04:30 | NUR ---
Patient states he still feels SOB.
[2019-11-26] MEDS ORDERED: PROPOFOL 100 ML IV ONE ×2 (06:22→10:30)
--- NOTE | 2019-11-26 06:35 | NUR ---
Patient transferred to room 41 for intubation.
[2019-11-26] MEDS: PROPOFOL 100 ML IV PRN ×4 (06:55→23:01)
[2019-11-26] MEDS: ALBUTEROL-IPRATROPIUM MDI INH INH SCH ×4 (07:18→21:00)
[2019-11-26] MEDS ORDERED: ETOMIDATE 20 MG/10 ML IVPush ONE (07:30)
[2019-11-26] MEDS ORDERED: SUCCINYLCHOLINE 20 MG/ML, 10ML IVPush ONE (07:30)
--- NOTE | 2019-11-26 07:42 | NUR ---
Report to ADAM Hubbard.
--- NOTE | 2019-11-26 08:02 | NUR ---
Late entry: bedside report from Jose Juan MEDINA. Pt to ED with increasing SOB x2d, pt hx recent hospital admissions for pneumonia. Pt intubated - current vent settings TV400, PEEP 5, 50% Fio2. On xray ET tube in R main stem, RT backed ET to 21@lip. Propofol gtt@15mcg/kg/min, pt coughing and grimacing, increased to 20mcg/kg/min with increased compliance with ventilator. Additional IV established and Vanco restarted. UOP 100cc. T 97.9. See assessment.
--- NOTE | 2019-11-26 08:11 | NUR ---
sputum sent to lab. pt increasingly agitated, sedation increased, pain meds requested.
[2019-11-26] MEDS ORDERED: FENTANYL PF 100 MCG/2ML ONE (08:33)
--- NOTE | 2019-11-26 08:41 | NUR ---
PT STILL RESTLESS AND FIGHTING VENT, NODS YES TO PAIN. PT MEDICATED PER MAR.
[2019-11-26] MEDS ORDERED: FENTANYL PF 100 MCG/2ML IV ONE (09:00)
--- NOTE | 2019-11-26 09:08 | NUR ---
pt resting calmly in gurney, RASS -2, pt more comfortable after Fentanyl. Propofol gtt @30. VSS. WCTM
--- NOTE | 2019-11-26 09:33 | NUR ---
ADMITTING MD AT BEDSIDE. PT GRIMICING AND KICKING, FIGHTING VENT. PROPOFOL INCREASED.
[2019-11-26] MEDS ORDERED: ONDANSETRON 2MG/ML, 2ML IVPush PRN (10:00)
[2019-11-26] MEDS ORDERED: VANCOMYCIN PER PHARMACY MC PRN (10:00)
--- NOTE | 2019-11-26 10:05 | NUR ---
lab at bedside
[2019-11-26] MEDS: AZITHROMYCIN 500 MG in SODIUM CHLORIDE 0.9% 250 ML IV SCH (10:27)
[2019-11-26 10:36] LABS: TROPONIN I < 0.015 ng/mL (0.000-0.045)
--- NOTE | 2019-11-26 10:38 | NUR ---
REQUEST SENT TO PHARMACY FOR MERREM
--- NOTE | 2019-11-26 10:39 | NUR ---
URINE SENT TO LAB, ABX STARTED
[2019-11-26 11:07] LABS: MICROSCOPIC INDICATED
--- NOTE | 2019-11-26 11:10 | NUR ---
PT RESTING IN [facility] FOR FENTANYL GTT SENT TO PHARMACY
[2019-11-26 11:24] LABS: CULTURE INDICATED? YES
[2019-11-26] MEDS ORDERED: LIDOCAINE-MPF 1%, 2ML ENDO PRN (12:00)
[2019-11-26] MEDS ORDERED: PHARMACY MAY ADJ FOR RENAL FX MC SCH (12:00)
[2019-11-26] MEDS ORDERED: ZIPRASIDONE 20 MG INJ IM ONE (12:06)
[2019-11-26] MEDS: MEROPENEM 1 GM in SODIUM CHLORIDE 0.9% 100 ML IV SCH ×2 (12:19→19:00)
[2019-11-26] MEDS: ZIPRASIDONE 20 MG INJ IM PRN ×2 (12:24→23:40)
--- NOTE | 2019-11-26 12:24 | NUR ---
PT INCREASINGLY AGITATED WITH LOW BP, EKG REVIEWED WITH EDWINA COLEMAN TO GIVE GEODON ORDERED BY SRINIVASA CH.
[2019-11-26 12:38] LABS: FIO2 60 %
--- NOTE | 2019-11-26 13:07 | NUR ---
i am watching thi pt while arturo helps with an emergency elswwhere. pt tolerating sedation well. vs are stable and wdl. i will monitor and treat as ordered, as well as prn
--- NOTE | 2019-11-26 13:58 | NUR ---
Tube feed: Vital High Protein goal: 40 ml/hr on propofol, 45 ml/hr off propofol Addendum: 11/26/19 at [address] Amended: Links added.
--- NOTE | 2019-11-26 14:05 | NUR ---
TRIED TO CALL REPORT X1
--- NOTE | 2019-11-26 14:11 | NUR ---
REPORT TO VOI RN, ROOM NOT CLEAN, ICU TO CALL WHEN ROOM READY.
--- NOTE | 2019-11-26 14:12 | NUR ---
PT RESTING IN [facility], TOLERATING SEDATION WELL. REPORT TO BREAK RN.
--- NOTE | 2019-11-26 15:30 | NUR ---
PT TRANSPORTED TO ICU 5 WITH TECH AND RT, PT TOLERATED WELL. BALJEET MEDINA TO TAKE OVER CARE OF PT.
[2019-11-26] MEDS ORDERED: PHARMACOKINETIC MONITORING MC PRN (16:30)
[2019-11-26] MEDS ORDERED: PHARMACOKINETIC CONSULTATION MC ONE (16:30)
[2019-11-26] MEDS: FUROSEMIDE 20 MG/2 ML IV SCH (16:33)
[2019-11-26 17:04] LABS: TROPONIN I < 0.015 ng/mL (0.000-0.045)
[2019-11-26 18:24] LABS: RAPID INFLUENZA A Negative (Negative); RAPID INFLUENZA B Negative (Negative)
[2019-11-26] MEDS ORDERED: CIMETIDINE 400 MG TABLET PO SCH (21:00)
[2019-11-26] MEDS: TAMSULOSIN 0.4 MG CAP.ER.24H PO SCH (23:02)
[2019-11-26] MEDS: POTASSIUM CHLORIDE 10% 20 MEQ/15 ML UDC PO SCH (23:02)
[2019-11-26] MEDS: ATORVASTATIN 20 MG TABLET PO SCH (23:02)
[2019-11-26] MEDS: FAMOTIDINE 20 MG TABLET PO SCH (23:04)
[2019-11-26] MEDS: APIXABAN 5 MG TABLET PO SCH (23:04)
[2019-11-26] MEDS: VANCOMYCIN 1,400 MG in SODIUM CHLORIDE 0.9% 250 ML IV SCH (23:37)
[2019-11-27] MEDS: ALBUTEROL-IPRATROPIUM MDI INH INH SCH (00:20)
[2019-11-27] MEDS: MEROPENEM 1 GM in SODIUM CHLORIDE 0.9% 100 ML IV SCH ×3 (01:43→17:01)
[2019-11-27] MEDS: ALBUTEROL/IPRATROPIUM 2.5MG/0.5MG, 3 ML NPPB SCH ×6 (02:25→22:47)
[2019-11-27 05:36] LABS: BASOPHILS # (AUTO) 0.02 x10^3/uL (0-0.1); BASOPHILS % (AUTO) 0 % (0-1); EOSINOPHILS % (AUTO) 3 % (1-7); LYMPHOCYTES # (AUTO) 2.65 x10^3/uL (1-3.4); LYMPHOCYTES % (AUTO) 35 % (22-44); MD NO; MEAN CORPUSCULAR HEMOGLOBIN 34.2 pg (27.5-34.5); MEAN CORPUSCULAR HGB CONC 34.5 g/dL (33.2-36.2); MEAN PLATELET VOLUME 8.4 fL (7.4-10.4); MONOCYTES # (AUTO) 0.64 x10^3/uL (0.2-0.8); MONOCYTES % (AUTO) 9 % (2-9); NEUTROPHILS # (AUTO) 4.06 x10^3/uL (1.8-6.8); NEUTROPHILS % (AUTO) 54 % (42-75); PLATELET COUNT 252 x10^3/uL (130-400); RED BLOOD COUNT 3.38 x10^6/uL (4.38-5.82); RED CELL DISTRIBUTION WIDTH 16.6 % (9.4-14.8)
[2019-11-27 05:41] LABS: ANION GAP 5 mmol/L (5-15); CALCIUM 8.7 mg/dL (8.5-10.1); CHLORIDE 106 mmol/L (98-107)
[2019-11-27 05:42] LABS: CREATININE 1.04 mg/dL (0.7-1.3)
[2019-11-27] MEDS: PROPOFOL 100 ML IV PRN ×4 (06:23→22:52)
[2019-11-27 06:44] VITALS: BP 110/60
[2019-11-27] MEDS: ZIPRASIDONE 20 MG INJ IM PRN ×2 (07:22→14:20)
[2019-11-27] MEDS: AMBRISENTAN PO SCH (09:00)
[2019-11-27] MEDS: TADALAFIL PO SCH (09:00)
[2019-11-27] MEDS: FUROSEMIDE 20 MG/2 ML IV SCH ×2 (09:18→16:57)
[2019-11-27] MEDS: ASPIRIN 81 MG TABLET EC PO SCH (09:19)
[2019-11-27] MEDS: POTASSIUM CHLORIDE 10% 20 MEQ/15 ML UDC PO SCH ×2 (09:19→22:52)
[2019-11-27] MEDS: APIXABAN 5 MG TABLET PO SCH ×2 (09:19→22:52)
[2019-11-27] MEDS: SENNA/DOCUSATE TABLET PO SCH (09:19)
[2019-11-27] MEDS: FENTANYL PF 100 MCG/2ML IVPush PRN ×2 (09:19→16:57)
[2019-11-27] MEDS: TAMSULOSIN 0.4 MG CAP.ER.24H PO SCH ×2 (09:19→21:00)
[2019-11-27] MEDS: LISINOPRIL 10 MG TABLET PO SCH (09:20)
[2019-11-27] MEDS: FAMOTIDINE 20 MG TABLET PO SCH ×2 (09:20→22:52)
[2019-11-27] MEDS: EPLERENONE 50 MG TABLET PO SCH (10:29)
[2019-11-27] MEDS ORDERED: VANCOMYCIN PER PHARMACY MC ONE (10:30)
[2019-11-27] MEDS ORDERED: VANCOMYCIN PER PHARMACY MC PRN (10:30)
[2019-11-27] MEDS: AZITHROMYCIN 500 MG in SODIUM CHLORIDE 0.9% 250 ML IV SCH (10:32)
[2019-11-27] MEDS: VANCOMYCIN 1,400 MG in SODIUM CHLORIDE 0.9% 250 ML IV SCH (18:01)
[2019-11-27] MEDS: ATORVASTATIN 20 MG TABLET PO SCH (22:52)
[2019-11-28] MEDS: FENTANYL PF 1,000 MCG in SODIUM CHLORIDE 0.9% 80 ML IV PRN ×2 (00:29→20:51)
[2019-11-28] MEDS: ALBUTEROL/IPRATROPIUM 2.5MG/0.5MG, 3 ML NPPB SCH ×6 (02:31→22:00)
[2019-11-28] MEDS: PROPOFOL 100 ML IV PRN ×5 (03:16→20:38)
[2019-11-28] MEDS: MEROPENEM 1 GM in SODIUM CHLORIDE 0.9% 100 ML IV SCH ×3 (03:16→17:30)
[2019-11-28 04:00] VITALS: BP 118/52
[2019-11-28 05:55] LABS: BASOPHILS # (AUTO) 0.04 x10^3/uL (0-0.1); BASOPHILS % (AUTO) 1 % (0-1); EOSINOPHILS # (AUTO) 0.35 x10^3/uL (0-0.4); EOSINOPHILS % (AUTO) 5 % (1-7); LYMPHOCYTES # (AUTO) 2.21 x10^3/uL (1-3.4); LYMPHOCYTES % (AUTO) 30 % (22-44); MD NO; MEAN CORPUSCULAR HEMOGLOBIN 32.8 pg (27.5-34.5); MEAN CORPUSCULAR HGB CONC 33.6 g/dL (33.2-36.2); MEAN CORPUSCULAR VOLUME 97.8 fL (81-97); MEAN PLATELET VOLUME 8.3 fL (7.4-10.4); MONOCYTES # (AUTO) 0.67 x10^3/uL (0.2-0.8); MONOCYTES % (AUTO) 9 % (2-9); NEUTROPHILS # (AUTO) 4.16 x10^3/uL (1.8-6.8); NEUTROPHILS % (AUTO) 56 % (42-75); PLATELET COUNT 288 x10^3/uL (130-400); RED BLOOD COUNT 3.57 x10^6/uL (4.38-5.82)
[2019-11-28 06:10] LABS: ANION GAP 4 mmol/L (5-15); CALCIUM 8.8 mg/dL (8.5-10.1); CHLORIDE 106 mmol/L (98-107); CREATININE 1.13 mg/dL (0.7-1.3)
[2019-11-28] MEDS ORDERED: IPRATROPIUM 0.5 MG/2.5 ML INHA ONE (06:46)
[2019-11-28] MEDS ORDERED: ALBUTEROL SULFATE 2.5 MG/3 ML ONE (06:46)
[2019-11-28] MEDS: ASPIRIN 81 MG TABLET EC PO SCH (07:32)
[2019-11-28] MEDS: TADALAFIL PO SCH (09:00)
[2019-11-28] MEDS: AMBRISENTAN PO SCH (09:00)
[2019-11-28] MEDS: FUROSEMIDE 20 MG/2 ML IV SCH ×2 (09:55→17:30)
[2019-11-28] MEDS: POTASSIUM CHLORIDE 10% 20 MEQ/15 ML UDC PO SCH ×2 (09:56→20:38)
[2019-11-28] MEDS: ZIPRASIDONE 20 MG INJ IM PRN (09:56)
[2019-11-28] MEDS: EPLERENONE 50 MG TABLET PO SCH (09:56)
[2019-11-28] MEDS: APIXABAN 5 MG TABLET PO SCH ×2 (09:57→20:36)
[2019-11-28] MEDS: TAMSULOSIN 0.4 MG CAP.ER.24H PO SCH ×2 (09:57→20:36)
[2019-11-28] MEDS: LISINOPRIL 10 MG TABLET PO SCH (09:57)
[2019-11-28] MEDS: SENNA/DOCUSATE TABLET PO SCH (09:58)
[2019-11-28] MEDS: FAMOTIDINE 20 MG TABLET PO SCH ×2 (09:58→20:36)
[2019-11-28] MEDS: VANCOMYCIN 1,400 MG in SODIUM CHLORIDE 0.9% 250 ML IV SCH (10:51)
[2019-11-28] MEDS: AZITHROMYCIN 500 MG in SODIUM CHLORIDE 0.9% 250 ML IV SCH (11:58)
[2019-11-28] MEDS: ATORVASTATIN 20 MG TABLET PO SCH (20:36)
[2019-11-29] MEDS: PROPOFOL 100 ML IV PRN ×3 (00:34→04:35)
[2019-11-29] MEDS: ALBUTEROL/IPRATROPIUM 2.5MG/0.5MG, 3 ML NPPB SCH ×2 (02:42→07:05)
[2019-11-29] MEDS: MEROPENEM 1 GM in SODIUM CHLORIDE 0.9% 100 ML IV SCH ×3 (02:52→17:50)
[2019-11-29 04:00] VITALS: BP 92/40
[2019-11-29 05:20] LABS: BASOPHILS # (AUTO) 0.09 x10^3/uL (0-0.1); BASOPHILS % (AUTO) 1 % (0-1); EOSINOPHILS # (AUTO) 0.34 x10^3/uL (0-0.4); EOSINOPHILS % (AUTO) 4 % (1-7); LYMPHOCYTES % (AUTO) 33 % (22-44); MD NO; MEAN CORPUSCULAR HEMOGLOBIN 32.4 pg (27.5-34.5); MEAN CORPUSCULAR HGB CONC 33.1 g/dL (33.2-36.2); MEAN CORPUSCULAR VOLUME 97.8 fL (81-97); MEAN PLATELET VOLUME 8.3 fL (7.4-10.4); MONOCYTES # (AUTO) 0.76 x10^3/uL (0.2-0.8); MONOCYTES % (AUTO) 10 % (2-9); NEUTROPHILS # (AUTO) 4.18 x10^3/uL (1.8-6.8); NEUTROPHILS % (AUTO) 53 % (42-75); PLATELET COUNT 270 x10^3/uL (130-400); RED BLOOD COUNT 3.23 x10^6/uL (4.38-5.82); RED CELL DISTRIBUTION WIDTH 17.5 % (9.4-14.8)
[2019-11-29 05:31] LABS: VANCOMYCIN,TROUGH 18.3 mcg/mL (5.0-10.0)
[2019-11-29 07:41] LABS: ANION GAP 6 mmol/L (5-15); CALCIUM 8.6 mg/dL (8.5-10.1); CHLORIDE 109 mmol/L (98-107)
[2019-11-29] MEDS: ASPIRIN 81 MG TABLET EC PO SCH (08:40)
[2019-11-29] MEDS: FUROSEMIDE 20 MG/2 ML IV SCH ×2 (08:40→17:50)
[2019-11-29] MEDS: POTASSIUM CHLORIDE 10% 20 MEQ/15 ML UDC PO SCH (08:40)
[2019-11-29] MEDS: EPLERENONE 50 MG TABLET PO SCH (08:41)
[2019-11-29] MEDS: TAMSULOSIN 0.4 MG CAP.ER.24H PO SCH ×2 (08:41→20:58)
[2019-11-29] MEDS: APIXABAN 5 MG TABLET PO SCH ×2 (08:41→20:58)
[2019-11-29] MEDS: SENNA/DOCUSATE TABLET PO SCH (08:41)
[2019-11-29] MEDS: LISINOPRIL 10 MG TABLET PO SCH (08:41)
[2019-11-29] MEDS: FAMOTIDINE 20 MG TABLET PO SCH ×2 (08:41→20:58)
[2019-11-29] MEDS: TADALAFIL PO SCH (09:00)
[2019-11-29] MEDS: AMBRISENTAN PO SCH (09:00)
[2019-11-29] MEDS ORDERED: RISPERIDONE 1 MG/ML ORAL SOLN PO STA (09:10)
[2019-11-29] MEDS ORDERED: RISPERIDONE 1 MG TABLET PO SCH (09:30)
[2019-11-29] MEDS ORDERED: ALBUTEROL SULFATE 2.5 MG/3 ML NPPB PRN (10:00)
[2019-11-29] MEDS: AZITHROMYCIN 500 MG in SODIUM CHLORIDE 0.9% 250 ML IV SCH (11:02)
[2019-11-29] MEDS: ALBUTEROL SULFATE 2.5 MG/3 ML NPPB SCH ×3 (16:55→23:00)
[2019-11-29 19:54] VITALS: BP 121/71
[2019-11-29] MEDS: RISPERIDONE 1 MG TABLET PO SCH (20:58)
[2019-11-29] MEDS: ATORVASTATIN 20 MG TABLET PO SCH (20:58)
[2019-11-29] MEDS: POTASSIUM CHLORIDE 20 MEQ TAB.ER.PRT PO SCH (20:58)
[2019-11-30] MEDS: MEROPENEM 1 GM in SODIUM CHLORIDE 0.9% 100 ML IV SCH ×3 (01:58→18:35)
[2019-11-30 04:00] VITALS: BP 100/56
[2019-11-30] MEDS: ALBUTEROL SULFATE 2.5 MG/3 ML NPPB SCH ×6 (04:00→22:00)
[2019-11-30] MEDS: LISINOPRIL 10 MG TABLET PO SCH ×2 (08:11→08:18)
[2019-11-30] MEDS: ASPIRIN 81 MG TABLET EC PO SCH ×2 (08:11→08:18)
[2019-11-30] MEDS: TAMSULOSIN 0.4 MG CAP.ER.24H PO SCH ×2 (08:11→20:15)
[2019-11-30] MEDS: FAMOTIDINE 20 MG TABLET PO SCH ×2 (08:11→20:16)
[2019-11-30] MEDS: EPLERENONE 50 MG TABLET PO SCH (08:12)
[2019-11-30] MEDS: FUROSEMIDE 20 MG/2 ML IV SCH ×2 (08:12→14:56)
[2019-11-30] MEDS: APIXABAN 5 MG TABLET PO SCH ×2 (08:12→20:16)
[2019-11-30] MEDS: RISPERIDONE 1 MG TABLET PO SCH (08:14)
[2019-11-30] MEDS: SENNA/DOCUSATE TABLET PO SCH (08:14)
[2019-11-30] MEDS: TADALAFIL PO SCH (08:15)
[2019-11-30] MEDS: AMBRISENTAN PO SCH (08:15)
--- NOTE | 2019-11-30 10:04 | NUR ---
REC: D/C Home when cleared by Addendum: 11/30/19 at 1004 by aCndace DYKES Amended: Links added.
[2019-11-30] MEDS: POTASSIUM CHLORIDE 20 MEQ TAB.ER.PRT PO SCH ×2 (11:20→20:16)
[2019-11-30] MEDS ORDERED: FUROSEMIDE 40 MG/4 ML ONE (14:53)
[2019-11-30] MEDS: ATORVASTATIN 20 MG TABLET PO SCH (20:16)
[2019-12-01] MEDS: MEROPENEM 1 GM in SODIUM CHLORIDE 0.9% 100 ML IV SCH ×2 (01:44→10:29)
[2019-12-01 04:00] LABS: ANION GAP 2 mmol/L (5-15); CALCIUM 8.6 mg/dL (8.5-10.1); CHLORIDE 101 mmol/L (98-107); CREATININE 1.28 mg/dL (0.7-1.3)
[2019-12-01 04:11] VITALS: BP 114/42
[2019-12-01] MEDS: ALBUTEROL SULFATE 2.5 MG/3 ML NPPB SCH ×5 (06:00→22:00)
[2019-12-01] MEDS: LISINOPRIL 10 MG TABLET PO SCH (09:00)
[2019-12-01] MEDS: ASPIRIN 81 MG TABLET EC PO SCH (09:00)
[2019-12-01] MEDS: AMBRISENTAN PO SCH (09:00)
[2019-12-01] MEDS: SENNA/DOCUSATE TABLET PO SCH (09:00)
[2019-12-01] MEDS: TADALAFIL PO SCH (09:00)
[2019-12-01] MEDS ORDERED: FUROSEMIDE 20 MG/2 ML IV SCH (09:00)
[2019-12-01] MEDS: FUROSEMIDE 20 MG/2 ML IV SCH (09:16)
[2019-12-01] MEDS: EPLERENONE 50 MG TABLET PO SCH (09:20)
[2019-12-01] MEDS: APIXABAN 5 MG TABLET PO SCH ×2 (09:20→21:05)
[2019-12-01] MEDS: TAMSULOSIN 0.4 MG CAP.ER.24H PO SCH ×2 (09:20→21:05)
[2019-12-01] MEDS: POTASSIUM CHLORIDE 20 MEQ TAB.ER.PRT PO SCH (09:21)
[2019-12-01] MEDS: FAMOTIDINE 20 MG TABLET PO SCH (09:23)
[2019-12-01 14:01] VITALS: BP 120/74
[2019-12-01] MEDS ORDERED: DIPHENHYDRAMINE 25 MG CAPSULE PO ONE (17:30)
[2019-12-01 19:05] VITALS: BP 137/78
[2019-12-01] MEDS: ATORVASTATIN 20 MG TABLET PO SCH (21:05)
[2019-12-01] MEDS ORDERED: MEROPENEM 1 GM in SODIUM CHLORIDE 0.9% 100 ML IV SCH (23:00)
[2019-12-02 01:04] VITALS: BP 120/68
[2019-12-02] MEDS ORDERED: NYSTATIN TOPICAL POWDER 15GM TP PRN (02:30)
[2019-12-02 05:33] LABS: ANION GAP 4 mmol/L (5-15); CALCIUM 8.8 mg/dL (8.5-10.1); CHLORIDE 102 mmol/L (98-107)
[2019-12-02 05:36] LABS: CREATININE 1.04 mg/dL (0.7-1.3)
[2019-12-02 07:32] VITALS: BP 106/62
[2019-12-02] MEDS: ALBUTEROL SULFATE 2.5 MG/3 ML NPPB SCH ×2 (07:50→10:40)
[2019-12-02] MEDS: SENNA/DOCUSATE TABLET PO SCH (07:57)
[2019-12-02] MEDS: EPLERENONE 50 MG TABLET PO SCH (07:58)
[2019-12-02] MEDS: LISINOPRIL 10 MG TABLET PO SCH (07:58)
[2019-12-02] MEDS: APIXABAN 5 MG TABLET PO SCH (07:58)
[2019-12-02] MEDS: ASPIRIN 81 MG TABLET EC PO SCH (07:58)
[2019-12-02] MEDS: TAMSULOSIN 0.4 MG CAP.ER.24H PO SCH (07:58)
[2019-12-02] MEDS: AMBRISENTAN PO SCH (07:59)
[2019-12-02] MEDS: TADALAFIL PO SCH (07:59)
[2019-12-02] MEDS ORDERED: ACETAMINOPHEN 325 MG TABLET PO PRN (08:30)
[2019-12-02] MEDS ORDERED: LEVO750T26 PO (08:44)
[2019-12-02] MEDS ORDERED: FAMOTIDINE 20 MG TABLET PO SCH (09:00)
== END 2019-12-02 10:55 | disposition home or self-care (01) | DRG 208 ==
LOC: ED 03:01 → EDIP 07:05 → SUATTDRO 07:28 → ICU 15:33 → 5SO 11-29 12:22 → CCU 11-30 16:58 → 3N 12-01 13:19
PROVIDERS: ADMIT Hospitalist; ATTEND Internal Medicine
PROC: 0BH17EZ Insertion of Endotracheal Airway into Trachea, Via Natural or Artificial Opening (ICD-10-PCS; principal; 2019-11-26)
PROC: 5A1945Z Respiratory Ventilation, 24-96 Consecutive Hours (ICD-10-PCS; 2019-11-26)
DX: J96.01 Acute respiratory failure with hypoxia (principal); J18.9 Pneumonia, unspecified organism; I50.33 Acute on chronic diastolic (congestive) heart failure; E66.2 Morbid (severe) obesity with alveolar hypoventilation; I44.2 Atrioventricular block, complete; I82.621 Acute embolism and thrombosis of deep veins of right upper extremity; J44.0 Chronic obstructive pulmonary disease with (acute) lower respiratory infection; J44.1 Chronic obstructive pulmonary disease with (acute) exacerbation; Z99.11 Dependence on respirator [ventilator] status; I11.0 Hypertensive heart disease with heart failure; J96.02 Acute respiratory failure with hypercapnia; D53.9 Nutritional anemia, unspecified; I08.2 Rheumatic disorders of both aortic and tricuspid valves; Y95 Nosocomial condition; Z79.01 Long term (current) use of anticoagulants; Z86.718 Personal history of other venous thrombosis and embolism; Z87.01 Personal history of pneumonia (recurrent); Z87.891 Personal history of nicotine dependence; Z91.19 Patient's noncompliance with other medical treatment and regimen; Z03.818 Encounter for observation for suspected exposure to other biological agents ruled out; Z79.899 Other long term (current) drug therapy; Z91.040 Latex allergy status; Z88.5 Allergy status to narcotic agent; Z68.39 Body mass index [BMI] 39.0-39.9, adult; I27.20 Pulmonary hypertension, unspecified
CPT/HCPCS: 31500; 36415; 36600; 84145; 87400; 96365; 96366; 96368; 96375; 99291; J7613; 71045; 80048; 80053; 80202; 81001; 82803; 83605; 83735; 83880; 84100; 84443; 84478; 84484; 85025; 87040; 87070; 87081; 87086; 87205; 93005; 94002; 94003; 94150; 94640; G0378; J0456; J2185; J2543; J2704; J3010; J3370; J3486; J0330; J1940; J7050; Q0163

== ENCOUNTER 2020-12-10 07:51 | Day surgery (SDC) | payer MEDICAID ==
[~2020-12-10] VITALS: Ht 137.2 cm; Wt 68.2 kg
[~2020-12-10 07:51] MED LIST changes: +LEVO750T26 PO
[2020-12-10 08:39] VITALS: BP 137/76
[2020-12-10] MEDS ORDERED: FURO-92 PO (08:44)
[2020-12-10 09:03] LABS: BASOPHILS % (AUTO) 1 % (0-1); EOSINOPHILS % (AUTO) 3 % (1-7); LYMPHOCYTES % (AUTO) 36 % (22-44); MD NO; MEAN CORPUSCULAR HEMOGLOBIN 32.7 pg (27.5-34.5); MEAN PLATELET VOLUME 9.1 fL (7.4-10.4); MONOCYTES % (AUTO) 9 % (2-9); NEUTROPHILS % (AUTO) 51 % (42-75); PLATELET COUNT 202 x10^3/uL (130-400); RED BLOOD COUNT 5.08 x10^6/uL (4.38-5.82); RED CELL DISTRIBUTION WIDTH 14.4 % (9.4-14.8)
[2020-12-10] MEDS ORDERED: DIPHENHYDRAMINE 50 MG/ML, 1ML ONE (09:11)
[2020-12-10 09:17] LABS: ANION GAP 3 mmol/L (5-15); CALCIUM 8.4 mg/dL (8.5-10.1); CHLORIDE 107 mmol/L (98-107); CREATININE 0.96 mg/dL (0.7-1.3)
[2020-12-10] MEDS ORDERED: DIPHENHYDRAMINE 50 MG/ML, 1ML IVPush PRN (09:30)
[2020-12-10] MEDS ORDERED: LIDOCAINE-MPF 1%, 5ML ONE (09:48)
[2020-12-10] MEDS ORDERED: MIDAZOLAM 1 MG/ML, 2ML ONE (09:48)
[2020-12-10] MEDS ORDERED: FENTANYL PF 100 MCG/2ML ONE (09:48)
[2020-12-10] MEDS ORDERED: POTASSIUM CHLORIDE 20 MEQ TAB.ER.PRT ONE (10:57)
[2020-12-10] MEDS ORDERED: POTASSIUM CHLORIDE 20 MEQ TAB.ER.PRT PO ONE (11:00)
[2020-12-10] MEDS ORDERED: FUROSEMIDE 40 MG/4 ML IV ONE (11:00)
== END 2020-12-10 14:10 | disposition home or self-care (01) ==
LOC: CACL 07:51
PROVIDERS: ATTEND Internal Medicine Cardiovascular Disease
DX: I27.20 Pulmonary hypertension, unspecified (principal); I10 Essential (primary) hypertension; J44.9 Chronic obstructive pulmonary disease, unspecified; Z79.899 Other long term (current) drug therapy; Z88.5 Allergy status to narcotic agent; Z91.040 Latex allergy status
CPT/HCPCS: 36415; 80048; 85025; 93451; 99156; C1769; C1894; J1200; J1940; J2250; J3010